=== PATIENT | female | born 1930 | race Caucasian/White ===

== ENCOUNTER 2018-12-02 08:42 | Inpatient (IN) | payer MEDICARE, MEDICAID ==
[~2018-12-02] VITALS: Ht 165.1 cm; Wt 60.0 kg
[~2018-12-02 08:42] MED LIST: ASP81TEC PO; CALC-656 PO; CARV6.252 PO; CLOP75TA PO; HYDR-34 PO; LANS15CA PO; LISI20TA PO; MELA1TAB PO; MULT-608 PO; NITR100C3 PO; NTR.4SL SL; ROSU10TA12 PO
--- NOTE | 2018-12-02 09:15 | ED Cardiac General ---
History of Present Illness General Chief Complaint: Chest Pain Stated Complaint: CHEST PAIN Source: patient, family Exam Limitations: no limitations History of Present Illness Date Seen by Provider: Dec 02, 2018 Time Seen by Provider: 09:11 Initial Comments 87-year-old female presents with chest pain that occurred this morning. While walking to the dining room patient experienced 5 minutes of pressure type anterior nonradiating chest pain. She had no associated diaphoresis shortness of breath or nausea. Patient has cardiac disease. She has had stents in [place] with Dr. Landry. Patient has had strokes in the past. Patient denies fever, chills, productive cough, nausea vomiting or diarrhea, change in medication, or headache or stiff neck. The patient's chest pain has not recurred since it's 5 minute presentation earlier this morning. Allergies and Home Medications Allergies Coded Allergies: Erythromycin Base (Verified Allergy, Unknown, 07/22/10) Sulfa (Sulfonamides) (Verified Allergy, Unknown, 07/22/10) Home Medications Aspirin 81 Mg Tabec, 81 MG PO DAILY, (Reported) Calcium Carbonate/Vitamin D3 1 Each Tablet, 1 EACH PO DAILY, (Reported) Carvedilol 6.25 Mg Tablet, 1 EACH PO BID, (Reported) Clopidogrel Bisulfate 75 Mg Tablet, 1 EACH PO DAILY, (Reported) Hydrocodone Bit/Acetaminophen 1 Ea Tablet, 1-2 EA PO Q 4 - 6 HR PRN, (Reported) Lansoprazole 15 Mg Capsule.dr, 15 MG PO DAILY, (Reported) Lisinopril 20 Mg Tablet, 1 EACH PO DAILY, (Reported) Melatonin/Pyridoxine 1 Each Tablet, 1 EACH PO HS, (Reported) Multivitamins 1 Tab Tablet, 1 TAB PO DAILY, (Reported) Nitrofurantoin Macrocrystal 100 Mg Capsule, 1 CAP PO three times/weekly, (Reported) Clcr <60 mL/minute: Contraindicated Nitroglycerin 0.4 Mg Subl, 0.4 MG SL NEEDED, (Reported) Rosuvastatin Calcium 10 Mg Tablet, 1 EACH PO every other day, (Reported) Patient Home Medication List Home Medication List Reviewed: Yes Review of Systems Review of Systems Constitutional: no symptoms reported; No chills, No diaphoresis, No dizziness, No fever EENTM: No Symptoms Reported; No Blurred Vision Respiratory: No Symptoms Reported; Denies Cough, Denies Shortness of Air Cardiovascular: See HPI, Chest Pain; Denies Lightheadedness, Denies Palpitations Gastrointestinal: No Symptoms Reported; Denies Abdominal Pain, Denies Diarrhea, Denies Nausea, Denies Vomiting Genitourinary: No Symptoms Reported Musculoskeletal: no symptoms reported Skin: no symptoms reported Psychiatric/Neurological: No Symptoms Reported Endocrine: No Symptoms Reported Hematologic/Lymphatic: No Symptoms Reported Past Afadfbe-Jcyhag-Yyjueq Hx Past Med/Social Hx: Reviewed Nursing Past Med/Soc Hx Patient Social History Physical Abuse: No Sexual Abuse: No Mistreated: No Fear: No Physical Exam Vital Signs Vital Signs - First Documented Capillary Refill : Height, Weight, BMI Height: '" Weight: lbs. oz. kg; BMI Method: General Appearance: No Apparent Distress, WD/WN HEENT: Normal ENT Inspection Neck: Normal Inspection Respiratory: Lungs Clear Cardiovascular: Regular Rate, Rhythm, No Murmur Gastrointestinal: Normal Bowel Sounds Extremity: Normal Capillary Refill, Normal Inspection, Normal Range of Motion Neurologic/Psychiatric: No Motor/Sensory Deficits Skin: Normal Color, Warm/Dry; No Rash Progress/Results/Core Measures Results/Orders Lab Results Laboratory Tests Test 12/02/18 08:55 Range/Units White Blood Count 7.3 4.3-11.0 10^3/uL Red Blood Count 4.44 4.35-5.85 10^6/uL Hemoglobin 13.6 11.5-16.0 G/DL Hematocrit 42 35-52 % Mean Corpuscular Volume 94 80-99 FL Mean Corpuscular Hemoglobin 31 25-34 PG Mean Corpuscular Hemoglobin Concent 33 32-36 G/DL Red Cell Distribution Width 12.9 10.0-14.5 % Platelet Count 267 130-400 10^3/uL Mean Platelet Volume 10.7 H 7.4-10.4 FL Neutrophils (%) (Auto) 64 42-75 % Lymphocytes (%) (Auto) 26 12-44 % Monocytes (%) (Auto) 8 0-12 % Eosinophils (%) (Auto) 1 0-10 % Basophils (%) (Auto) 1 0-10 % Neutrophils # (Auto) 4.7 1.8-7.8 X 10^3 Lymphocytes # (Auto) 1.9 1.0-4.0 X 10^3 Monocytes # (Auto) 0.6 0.0-1.0 X 10^3 Eosinophils # (Auto) 0.1 0.0-0.3 10^3/uL Basophils # (Auto) 0.1 0.0-0.1 10^3/uL Sodium Level 142 135-145 MMOL/L Potassium Level 3.6 3.6-5.0 MMOL/L Chloride Level 101 98-107 MMOL/L Carbon Dioxide Level 27 21-32 MMOL/L Anion Gap 14 5-14 MMOL/L Blood Urea Nitrogen 11 7-18 MG/DL Creatinine 0.86 0.60-1.30 MG/DL Estimat Glomerular Filtration Rate > 60 BUN/Creatinine Ratio 13 Glucose Level 123 H 70-105 MG/DL Calcium Level 9.5 8.5-10.1 MG/DL Corrected Calcium 9.3 8.5-10.1 MG/DL Total Bilirubin 0.5 0.1-1.0 MG/DL Aspartate Amino Transf (AST/SGOT) 17 5-34 U/L Alanine Aminotransferase (ALT/SGPT) 12 0-55 U/L Alkaline Phosphatase 83 40-136 U/L Troponin I < 0.30 <0.30 NG/ML Total Protein 7.0 6.4-8.2 GM/DL Albumin 4.3 3.2-4.5 GM/DL Lipase 39 8-78 U/L My Orders Orders - SHERINE DONIS MD Troponin I (12/02/18 09:09) Cbc With Automated Diff (12/02/18 09:09) Comprehensive Metabolic Panel (12/02/18 09:09) Lipase (12/02/18 09:09) Ua Culture If Indicated (12/02/18 09:09) Chest 1 View Ap/Pa Only (12/02/18 09:09) Fibrin Degradation Products (12/02/18 09:09) Ekg Tracing (12/02/18 08:55) Continuous Ekg Monitoring (12/02/18 09:18) Ed Iv/Invasive Line Start (12/02/18 09:18) Aspirin Chewable Tablet (Baby Aspirin Ch (12/02/18 09:20) Medications Given in ED Current Medications Medications Dose Ordered Sig/Dianelys Route Start Time Stop Time Status Last Admin Dose Admin Aspirin 324 mg ONCE ONCE PO 12/02/18 09:20 12/02/18 09:21 DC 12/02/18 09:35 324 MG Vital Signs/I&O 12/02/18 12/02/18 08:44 08:44 Temp 97.7 Pulse 67 Resp 15 B/P (MAP) 176/78 (110) Pulse Ox 97 O2 Delivery Room Air Room Air Progress Progress Note : Time: 09:53 Progress Note The patient remained pain-free in the emergency department. Various historians revealed that the patient may be taking aspirin and Plavix. The family's desires that the patient be observed at [facility]. Drs. Sosa and BERTHA were kind enough to accept patient in transfer. The patient received 325 mg of aspirin and 25 mg of metoprolol extended release here in the emergency department. Arrangements are being made to transfer the patient to [facility] and I'll write holding orders Departure Communication (Admissions) Time/Spoke to Admitting Phy: 10:01 Dr. Cottrell. Time/Spoke to Consulting Phy: 10:02 Dr. Sosa. Impression Primary Impression: Chest pain Qualified Codes: R07.9 - Chest pain, unspecified Disposition: 09 ADMITTED INPATIENT Condition: Unchanged Admissions Decision to Admit Reason: Admit from ER (General) Decision to Admit/Date: Dec 02, 2018 Time/Decision to Admit Time: 10:02 Departure-Patient Inst. Referrals: APRIL CASTANEDA MD (PCP/Family) Primary Care Physician SHERINE DONIS MD Dec 02, 2018 09:15
[2018-12-02 09:19] LABS: HEMATOCRIT 42 % (35-52); HEMOGLOBIN 13.6 G/DL (11.5-16.0); MEAN CORPUSCULAR HEMOGLOBIN 31 PG (25-34); MEAN CORPUSCULAR VOLUME 94 FL (80-99); WHITE BLOOD COUNT 7.3 10^3/uL (4.3-11.0)
[2018-12-02 09:20] LABS: BASOPHILS # (AUTO) 0.1 10^3/uL (0.0-0.1); BASOPHILS % (AUTO) 1 % (0-10); EOSINOPHILS # (AUTO) 0.1 10^3/uL (0.0-0.3); EOSINOPHILS % (AUTO) 1 % (0-10); LYMPHOCYTES # (AUTO) 1.9 X 10^3 (1.0-4.0); LYMPHOCYTES % (AUTO) 26 % (12-44); MEAN CORPUSCULAR HGB CONC 33 G/DL (32-36); MEAN PLATELET VOLUME 10.7 FL (7.4-10.4); MONOCYTES # (AUTO) 0.6 X 10^3 (0.0-1.0); MONOCYTES % (AUTO) 8 % (0-12); NEUTROPHILS # (AUTO) 4.7 X 10^3 (1.8-7.8); NEUTROPHILS % (AUTO) 64 % (42-75); PLATELET COUNT 267 10^3/uL (130-400); RED CELL DISTRIBUTION WIDTH 12.9 % (10.0-14.5)
[2018-12-02] MEDS ORDERED: ASPIRIN 81 MG CHEW (CHILDREN'S ASA) PO ONE (09:20)
--- NOTE | 2018-12-02 09:35 | NUR ---
Spoke on family cell phone with a DPOA Yogi that advises ok to admit to [facility] and pt is a full resuscitation unless signs of permanent brain damage present or no recovery. At this time maintain Full Code.
--- NOTE | 2018-12-02 09:37 | Diagnostic Imaging Report ---
Indication: Chest pain. Comparison: None. Discussion: Single portable upright view of the chest was obtained. Heart is upper limits of normal in size. No focal consolidation, pleural fluid, or pneumothorax. No osseous abnormality. Impression: 1. No acute cardiopulmonary process. Dictated by: Dictated on workstation # [id number]
[2018-12-02 09:39] LABS: BUN/CREATININE RATIO 13; CALCIUM 9.5 MG/DL (8.5-10.1); CARBON DIOXIDE 27 MMOL/L (21-32); CHLORIDE 101 MMOL/L (98-107); CREATININE SERUM 0.86 MG/DL (0.60-1.30); GFR ESTIMATED > 60; GLUCOSE 123 MG/DL (70-105); POTASSIUM 3.6 MMOL/L (3.6-5.0); SODIUM 142 MMOL/L (135-145)
[2018-12-02 09:40] LABS: ALANINE AMINOTRANSFERASE 12 U/L (0-55); ALBUMIN 4.3 GM/DL (3.2-4.5); ALKALINE PHOSPHATASE 83 U/L (40-136); BILIRUBIN,TOTAL 0.5 MG/DL (0.1-1.0); LIPASE 39 U/L (8-78)
--- NOTE | 2018-12-02 09:45 | NUR ---
Call to [facility] [place] to leave a message on voice recorder of need for patient medication list.
--- NOTE | 2018-12-02 10:00 | NUR ---
Fax number provided to the [employer] Consultant Crystal of [facility] as present visiting with family. Request they fax a medication list to ER.
--- OUTSIDE RECORDS SUMMARY | 2018-12-02 10:23 | XMS REPORT | Continuity of Care Document ---
Demographics Preferred Language Unknown Marital Status Unknown Restorationism Affiliation Unknown Race Unknown Ethnic Group Unknown Author Organization Unknown Address Unknown Allergies There is no data. Medications There is no data. Problems There is no data. Procedures There is no data. Results Test Result Range A1C - 07/27/18 10:04 HEMOGLOBIN A1c 5.3 % of total Hgb <5.7 Encounters ACCT No. Visit Date/Time Discharge Status Pt. Type Provider Facility Loc./Unit Complaint [id number] 07/27/2018 16:30:00 Document Registration
--- OUTSIDE RECORDS SUMMARY | 2018-12-02 10:32 | XMS REPORT | Continuity of Care Document ---
Demographics Preferred Language Unknown Marital Status Unknown Roman Catholic Affiliation Unknown Race Unknown Ethnic Group Unknown Author Organization Unknown Address Unknown Allergies There is no data. Medications There is no data. Problems There is no data. Procedures There is no data. Results Test Result Range A1C - 07/27/18 10:04 HEMOGLOBIN A1c 5.3 % of total Hgb <5.7 Encounters ACCT No. Visit Date/Time Discharge Status Pt. Type Provider Facility Loc./Unit Complaint [id number] 07/27/2018 16:30:00 Document Registration
[2018-12-02 11:16] LABS: CLARITY,URINE CLEAR; COLOR,URINE YELLOW
[2018-12-02 11:17] LABS: BACTERIA,URINE MODERATE /HPF; BILIRUBIN,URINE NEGATIVE (NEGATIVE); GLUCOSE, URINE (UA) NEGATIVE (NEGATIVE); KETONES,URINE NEGATIVE (NEGATIVE); LEUKOCYTE ESTERASE ,URINE NEGATIVE (NEGATIVE); NITRITE,URINE POSITIVE (NEGATIVE); PROTEIN,URINE NEGATIVE (NEGATIVE); RBC,URINE RARE /HPF; SQUAMOUS EPITHELIAL CELL,UR 0-2 /HPF; UROBILINOGEN,URINE 0.2 MG/DL (NORMAL); WBC,URINE 0-2 /HPF
[2018-12-02 11:50] VITALS: BP 194/99
--- NOTE | 2018-12-02 11:50 | NUR ---
CED JOHN admitted to room 407-1, with an admitting diagnosis of chest pain, on 12/02/18 from [facility] via EMS, accompanied by EMS.CED JOHN introduced to surroundings, call light, bed controls, phone, TV, temperature control, lights, meal times, smoking policy, visitor policy, side rail policy, bathrooms and showers. Patient Rights given to patient in the handbook. CED JOHN verbalizes understanding that [facility] is not responsible for the loss or damage to any personal effects or valuables that are kept in the patients posession during their hospitalization. CED JOHN verbalizes understanding of Interdisciplinary Patient Education. Patient and/or family were informed about the Rapid Response Team and its purpose.
[2018-12-02] MEDS ORDERED: NS IV 1000 ML 1,000 ML IV SCH (12:45)
--- NOTE | 2018-12-02 13:10 | History & Physical-Hospitalist ---
History of Present Illness HPI/Chief Complaint Chief complaint: Chest pressure History of present illness: This is an 87-year-old white female clinic patient of Dr. Edmonds who resides in assisted living facility who was brought to the ER in [place] with complaints of chest pain. She reports that it is hard to describe but she did experience it and has not had a recurrent episode of it since admission. She has significant dementia of which she willingly admits so it is very difficult to obtain any details from the patient. She is seen Dr. Landry before cardiology in [place] and does have a history of CAD but uncertain of any intervention and so forth but it does appear she takes Plavix and aspirin as an outpatient. She does have a history of TIAs likely causing the vascular dementia and requiring assisted living facility. At this current time patient was very hungry is eating chicken noodles for lunch and seems to be very reassured. Her family is at the bedside. Source: patient, family Exam Limitations: no limitations Date Seen 12/02/18 Time Seen by a Provider: 13:00 Attending Physician Chantal Cottrell Maxwell MD Referring Physician Date of Admission Dec 02, 2018 at 10:26 Home Medications & Allergies Home Medications Reviewed patient Home Medication Reconciliation performed by pharmacy medication reconciliations body technician and/or nursing. Patients Allergies have been reviewed. Allergies Allergies Coded Allergies Sulfa (Sulfonamide Antibiotics) (Verified Allergy, Unknown, 12/02/18) erythromycin base (Verified Allergy, Unknown, 12/02/18) adhesive tape (Verified Adverse Reaction, Unknown, 12/02/18) gatifloxacin (Verified Adverse Reaction, Unknown, 12/02/18) salsalate (Verified Adverse Reaction, Unknown, 12/02/18) tramadol (Verified Adverse Reaction, Unknown, 12/02/18) Past Cvseiam-Kdczdb-Iayptm Hx Past Med/Social Hx: Reviewed Nursing Past Med/Soc Hx, Reviewed and Corrections made Patient Social History Marrital Status: single Employed/Student: retired Alcohol Use: Denies Use Recreational Drug Use: No Smoking Status: Never a Smoker 2nd Hand Smoke Exposure: No Recent Foreign Travel: No Contact w/other who traveled: No Recent Hopitalizations: No Recent Infectious Disease Expo: No Seasonal Allergies Seasonal Allergies: No Past Medical History Surgeries: Appendectomy, Bladder Surgery, Cardiac, Coronary Stent, Gallbladder, Hysterectomy Cardiac: Coronary Artery Disease, High Cholesterol, Hypertension Neurological: Dementia, TIA Hysterectomy Gastrointestinal: Gastroesophageal Reflux Musculoskeletal: Arthritis, Fibromyalgia History of Blood Disorders: No Review of Systems Constitutional: see HPI, malaise, weakness EENTM: no symptoms reported Respiratory: no symptoms reported Cardiovascular: chest pain Gastrointestinal: no symptoms reported Musculoskeletal: no symptoms reported Skin: no symptoms reported Psychiatric/Neurological: Depressed All Other Systems Reviewed Negative Unless Noted: Yes Physical Exam Physical Exam Vital Signs Vital Signs - First Documented Capillary Refill : Less Than 3 Seconds Height, Weight, BMI Height: 5'5.00" Weight: 132lbs. 5.0oz. [id number]; BMI Method:Stated General Appearance: No Apparent Distress, WD/WN, Chronically ill, Thin Eyes: Right Eye Normal Inspection, Right Eye PERRL HEENT: PERRL/EOMI, Normal ENT Inspection, Pharynx Normal, Moist Mucous Membranes Neck: Full Range of Motion, Normal Inspection, Non Tender Respiratory: Chest Non Tender, Lungs Clear, Normal Breath Sounds, No Accessory Muscle Use, No Respiratory Distress Cardiovascular: Regular Rate, Rhythm, No Edema, No Gallop, No JVD, No Murmur, Normal Peripheral Pulses Gastrointestinal: Normal Bowel Sounds, No Organomegaly, No Pulsatile Mass, Non Tender, Soft Back: Normal Inspection, No CVA Tenderness, No Vertebral Tenderness Extremity: Normal Capillary Refill, Normal Inspection, Normal Range of Motion, Non Tender, No Calf Tenderness, No Pedal Edema Neurologic/Psychiatric: Alert, Oriented x3 (very poor recall), No Motor/Sensory Deficits, Normal 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 Assessment/Plan Admission Diagnosis Assessment: Chest pain of uncertain etiology History of CAD previously treated by Dr. Landry cardiology in [place] unknown if any interventions were required in the past TIAs in the past Vascular dementia requiring assisted-living facility admission Hypertension Hormone replacement therapy Hyperlipidemia GERD Plan: Home meds after reconciled Aspirin and Plavix Statin Echo Carotid ultrasound Monitor closely Appreciate cardiology consultation Admission Status: Observation Diagnosis/Problems Diagnosis/Problems (1) Chest pain Status: Acute Qualifiers: Chest pain type: unspecified Qualified Codes: R07.9 - Chest pain, unspecified (2) Vascular dementia Status: Chronic Qualifiers: Dementia behavioral disturbance: without behavioral disturbance Qualified Codes: F01.50 - Vascular dementia without behavioral disturbance (3) Memory loss Status: Chronic (4) Hypertension Status: Chronic Qualifiers: Hypertension type: essential hypertension Qualified Codes: I10 - Essential (primary) hypertension (5) Hyperlipemia Status: Chronic Qualifiers: Hyperlipidemia type: mixed hyperlipidemia Qualified Codes: E78.2 - Mixed hyperlipidemia (6) Estrogen deficiency Status: Chronic (7) Hx-TIA (transient ischemic attack) Status: Chronic (8) GERD without esophagitis Status: Chronic CHANTAL COTTRELL DO Dec 02, 2018 13:10
[2018-12-02] MEDS ORDERED: meTOproloL SUCCINATE 50 MG (TOPROL XL) TAB PO NR (14:30)
--- NOTE | 2018-12-02 14:31 | Consultation-Cardiology ---
HPI-Cardiology Cardiology Consultation: Date of Consultation 12/02/18 Time Seen by a Provider: 13:20 Date of Admission Attending Physician Chantal Cottrell DO Admitting Physician Yosvany Edmonds MD Consulting Physician DICK JOHNSON MD, MA, FACP, FACC, [facility], CCDS Physician requesting consult: Dr Cottrell HPI: Chief Complaint: CC: Chest discomfort HPI 87 woman who resides at an assisting-living facility in [facility] [place] and who was sent to ER from the facility with chest discomfort. History is somewhat difficult to elicit because she herself does not recall any chest discomfort. She says she generally felt unwell and had some headache this am and did not feel like eating breakfast. Per family report and report of his care provider (to the ER physician at [facility]) she had pressure in the chest that lasted approx 5 min. As stated, pt does not recall that, but is stated to have mild dementia and poor memory. Family also reports a h/o TIAs and cor stents (last 10-[address] Landry in [place], [place]). She has not followed with a fuel quality tech of longer than 4 years, according to her. Review of Systems-Cardiology Review of Systems Constitutional: As described under HPI Eyes: No vision change Ears/Nose/Throat: No ear discharge, No nasal drainage, No recent hearing loss Respiratory: As described under HPI Cardiovascular: As described under HPI Gastrointestinal: No diarrhea, No nausea, No vomiting Genitourinary: No dysuria, No hematuria, No urine frequency changes Musculoskeletal: No back pain, No joint pain Skin: No rash, No ulcerations Psychiatric/Neurological: No seizure, No focal weakness, No syncope Hematologic: No bleeding abnormalities TSK-Kjzbaf-Hmoxkv Hx Patient Social History Alcohol Use: Denies Use Recreational Drug Use: No Smoking Status: Never a Smoker 2nd Hand Smoke Exposure: No Recent Foreign Travel: No Recent Infectious Disease Expo: No Hospitalization with Isolation: Denies Past Medical History PMH As described under Assessment. Family Medical History Family Medical History: A son had an [place] at age less than 60 Allergies and Home Medications Allergies Coded Allergies: Sulfa (Sulfonamide Antibiotics) (Verified Allergy, Unknown, 07/22/10) erythromycin base (Verified Allergy, Unknown, 07/22/10) adhesive tape (Unverified Adverse Reaction, Unknown, 12/02/18) gatifloxacin (Unverified Adverse Reaction, Unknown, 12/02/18) salsalate (Unverified Adverse Reaction, Unknown, 12/02/18) tramadol (Unverified Adverse Reaction, Unknown, 12/02/18) Home Medications Aspirin 81 Mg Tabec, 81 MG PO DAILY, (Reported) Calcium Carbonate/Vitamin D3 1 Each Tablet, 1 EACH PO DAILY, (Reported) Carvedilol 6.25 Mg Tablet, 1 EACH PO BID, (Reported) Clopidogrel Bisulfate 75 Mg Tablet, 1 EACH PO DAILY, (Reported) Hydrocodone Bit/Acetaminophen 1 Ea Tablet, 1-2 EA PO Q 4 - 6 HR PRN, (Reported) Lansoprazole 15 Mg Capsule.dr, 15 MG PO DAILY, (Reported) Lisinopril 20 Mg Tablet, 1 EACH PO DAILY, (Reported) Melatonin/Pyridoxine 1 Each Tablet, 1 EACH PO HS, (Reported) Multivitamins 1 Tab Tablet, 1 TAB PO DAILY, (Reported) Nitrofurantoin Macrocrystal 100 Mg Capsule, 1 CAP PO three times/weekly, (Reported) Clcr <60 mL/minute: Contraindicated Nitroglycerin 0.4 Mg Subl, 0.4 MG SL NEEDED, (Reported) Rosuvastatin Calcium 10 Mg Tablet, 1 EACH PO every other day, (Reported) Patient Home Medication List Home Medication List Reviewed: Yes Physical Exam-Cardiology Physical Exam Vital Signs/I&O 12/02/18 12/02/18 12/02/18 12/02/18 08:44 08:44 11:00 11:50 Temp 97.7 97.7 98.0 Pulse 67 55 67 Resp 15 15 20 B/P (MAP) 176/78 (110) 167/72 (103) 194/99 (130) Pulse Ox 97 96 98 O2 Delivery Room Air Room Air Room Air Room Air 12/02/18 12/02/18 11:50 13:29 Temp 98.0 Pulse 67 69 Resp 20 B/P (MAP) 194/99 Pulse Ox 98 O2 Delivery Room Air Capillary Refill : Less Than 3 Seconds Constitutional: AAO x 3, well-developed, well-nourished HEENT: PERRL, EOMI; No xanthelasmas are seen Neck: carotid pulses are 2 + bilaterally, with good upstrokes Respiratory: No accessory muscle use; lungs clear to percussion, lungs clear to auscultation Cardiovascular: regular rate-rhythm, S1 and S2, systolic murmur (soft KRISTY at card base) Gastrointestinal: No tender; soft; No guarding, No rebound; audible bowel sounds Extremities: No clubbing, No cyanosis, No significant edema Neurologic/Psychiatric: oriented x 3, other (moves all limbs equally) Skin: No rash on exposed areas, No ulcerations on exposed areas Data Review Labs Laboratory Tests 12/02/18 08:55: White Blood Count 7.3, Red Blood Count 4.44, Hemoglobin 13.6, Hematocrit 42, Mean Corpuscular Volume 94, Mean Corpuscular Hemoglobin 31, Mean Corpuscular Hemoglobin Concent 33, Red Cell Distribution Width 12.9, Platelet Count 267, Mean Platelet Volume 10.7H, Neutrophils (%) (Auto) 64, Lymphocytes (%) (Auto) 26, Monocytes (%) (Auto) 8, Eosinophils (%) (Auto) 1, Basophils (%) (Auto) 1, Neutrophils # (Auto) 4.7, Lymphocytes # (Auto) 1.9, Monocytes # (Auto) 0.6, Eosinophils # (Auto) 0.1, Basophils # (Auto) 0.1, D-Dimer 0.61H, Sodium Level 142, Potassium Level 3.6, Chloride Level 101, Carbon Dioxide Level 27, Anion Gap 14, Blood Urea Nitrogen 11, Creatinine 0.86, Estimat Glomerular Filtration Rate > 60, BUN/Creatinine Ratio 13, Glucose Level 123H, Calcium Level 9.5, Corrected Calcium 9.3, Total Bilirubin 0.5, Aspartate Amino Transf (AST/SGOT) 17, Alanine Aminotransferase (ALT/SGPT) 12, Alkaline Phosphatase 83, Troponin I < 0.30, T otal Protein 7.0, Albumin 4.3, Lipase 39 12/02/18 11:00: Urine Color YELLOW, Urine Clarity CLEAR, Urine pH 8.0, Urine Specific [place] 1.010L, Urine Protein NEGATIVE, Urine Glucose (UA) NEGATIVE, Urine Ketones NEGATIVE, Urine Nitrite POSITIVEH, Urine Bilirubin NEGATIVE, Urine Urobilinogen 0.2, Urine Leukocyte Esterase NEGATIVE, Urine RBC (Auto) NEGATIVE, Urine RBC RARE, Urine WBC 0-2, Urine Squamous Epithelial Cells 0-2, Urine Crystals NONE, Urine Bacteria MODERATEH, Urine Casts NONE, Urine Mucus NONE, Urine Culture Indicated YES Laboratory Tests 12/02/18 08:55 A/P-Cardiology Assessment/Admission Diagnosis Chest discomfort of undetermined etiology CAD. H/o cor stents at [place], [place] more than 10 years ago. No details known to pt or family H/o TIAs (as reported by her family) Hypertension Mild dementia Discussion and Recomendations * Serial card enzymes and troponin measurements. If evidence of ACS, consider cath/PCI. Otherwise, conservative management * Add aspirin and beta-carola * Echo * Check carotids * I spoke with her and her fam in detail and explained our treatment plan and answered their questions DICK JOHNSON MD FACP FACC CCDS Dec 02, 2018 14:31
[2018-12-02] MEDS ORDERED: ESTR0.5T3 PO (15:02)
[2018-12-02] MEDS ORDERED: DONE10TA12 PO (15:04)
[2018-12-02] MEDS ORDERED: MEMA10TA2 PO (15:06)
[2018-12-02] MEDS ORDERED: LISI-556 PO (15:12)
[2018-12-02 15:34] VITALS: BP 188/82
[2018-12-02 17:18] VITALS: BP 186/78
[2018-12-02 19:36] VITALS: BP 178/78
[2018-12-02] MEDS ORDERED: DONEPEZIL 10 MG (ARICEPT) TAB PO SCH (21:00)
[2018-12-02] MEDS ORDERED: ROSUVASTATIN 10 MG (CRESTOR) TABLET PO SCH (21:00)
[2018-12-02] MEDS: MEMANTINE 10 MG (NAMENDA) TABLET PO SCH (21:08)
[2018-12-03] VITALS: BP 175/73
[2018-12-03 04:04] VITALS: BP 151/76
[2018-12-03 05:18] LABS: BASOPHILS # (AUTO) 0.1 10^3/uL (0.0-0.1); BASOPHILS % (AUTO) 1 % (0-10); EOSINOPHILS # (AUTO) 0.1 10^3/uL (0.0-0.3); EOSINOPHILS % (AUTO) 2 % (0-10); HEMATOCRIT 39 % (35-52); HEMOGLOBIN 12.3 G/DL (11.5-16.0); LYMPHOCYTES # (AUTO) 1.6 X 10^3 (1.0-4.0); LYMPHOCYTES % (AUTO) 27 % (12-44); MEAN CORPUSCULAR HEMOGLOBIN 30 PG (25-34); MEAN CORPUSCULAR HGB CONC 32 G/DL (32-36); MEAN CORPUSCULAR VOLUME 93 FL (80-99); MONOCYTES # (AUTO) 0.7 X 10^3 (0.0-1.0); MONOCYTES % (AUTO) 12 % (0-12); NEUTROPHILS # (AUTO) 3.5 X 10^3 (1.8-7.8); NEUTROPHILS % (AUTO) 57 % (42-75); PLATELET COUNT 239 10^3/uL (130-400); WHITE BLOOD COUNT 6.1 10^3/uL (4.3-11.0)
[2018-12-03 05:33] LABS: ALANINE AMINOTRANSFERASE 13 U/L (0-55); ALBUMIN 3.7 GM/DL (3.2-4.5); ALKALINE PHOSPHATASE 64 U/L (40-136); BILIRUBIN,TOTAL 0.5 MG/DL (0.1-1.0); BUN/CREATININE RATIO 14; CARBON DIOXIDE 24 MMOL/L (21-32); CHLORIDE 108 MMOL/L (98-107); CREATININE SERUM 0.78 MG/DL (0.60-1.30); GFR ESTIMATED > 60; GLUCOSE 93 MG/DL (70-105); POTASSIUM 3.7 MMOL/L (3.6-5.0); SODIUM 142 MMOL/L (135-145); TOTAL PROTEIN 5.6 GM/DL (6.4-8.2)
[2018-12-03] MEDS ORDERED: MULTIVIT W/MINERALS TAB (THERAGRAN M) PO SCH (07:00)
[2018-12-03 08:13] VITALS: BP 156/70
[2018-12-03] MEDS ORDERED: meTOproloL SUCCINATE 50 MG (TOPROL XL) TAB PO SCH (09:00)
[2018-12-03] MEDS ORDERED: lisINopril 5 MG (PRINIVIL) TABLET PO SCH (09:00)
[2018-12-03] MEDS ORDERED: ASPIRIN 325 MG (5 GR) TABLET PO SCH (09:00)
[2018-12-03] MEDS ORDERED: ASPIRIN E.C. 81 MG (ECOTRIN) TAB PO SCH (09:00)
[2018-12-03] MEDS: MEMANTINE 10 MG (NAMENDA) TABLET PO SCH (10:02)
[2018-12-03 12:07] VITALS: BP 192/78
--- NOTE | 2018-12-03 13:26 | Discharge Summary-Hospitalist ---
Diagnosis/Chief Complaint Date of Admission Dec 02, 2018 at 10:26 Date of Discharge Discharge Date: Dec 03, 2018 Admission Diagnosis Assessment: Chest pain of uncertain etiology History of CAD previously treated by Dr. Landry cardiology in [place] unknown if any interventions were required in the past TIAs in the past Vascular dementia requiring assisted-living facility admission Hypertension Hormone replacement therapy Hyperlipidemia GERD Plan: Home meds after reconciled Aspirin and Plavix Statin Echo Carotid ultrasound Monitor closely Appreciate cardiology consultation Discharge Diagnosis (1) Chest pain Status: Acute (2) Vascular dementia Status: Chronic (3) Memory loss Status: Chronic (4) Hypertension Status: Chronic (5) Hyperlipemia Status: Chronic (6) Estrogen deficiency Status: Chronic (7) Hx-TIA (transient ischemic attack) Status: Chronic (8) GERD without esophagitis Status: Chronic Discharge Summary Discharge Physical Exam Allergies: Coded Allergies: Sulfa (Sulfonamide Antibiotics) (Verified Allergy, Unknown, 12/02/18) erythromycin base (Verified Allergy, Unknown, 12/02/18) adhesive tape (Verified Adverse Reaction, Unknown, 12/02/18) gatifloxacin (Verified Adverse Reaction, Unknown, 12/02/18) salsalate (Verified Adverse Reaction, Unknown, 12/02/18) tramadol (Verified Adverse Reaction, Unknown, 12/02/18) Vitals & I&Os Vital Signs Date Time Temp Pulse Resp B/P (MAP) Pulse Ox O2 Delivery O2 Flow Rate FiO2 12/03/18 15:09 51 19 192/78 99 Room Air 0.00 12/03/18 12:07 97.2 General Appearance: No Apparent Distress, WD/WN, Chronically ill Respiratory: Chest Non Tender, Lungs Clear, Normal Breath Sounds, No Accessory Muscle Use, No Respiratory Distress Cardiovascular: Regular Rate, Rhythm, No Edema, No Gallop, No JVD, No Murmur, Normal Peripheral Pulses Neurologic/Psychiatric: Alert, Oriented x3, No Motor/Sensory Deficits, Normal Mood/Affect Hospital Course Was the Problem List Reviewed?: Yes Hospital course: Patient had a short hospital course in observation after complaining of chest pain went to [facility] from assisted living was found to have the need for ruling out acute coronary syndrome so she was placed at [facility] cardiology was consulted and serial troponins were obtained. Patient has significant dementia requiring assisted living placement chronically and does not really recall the episode of chest pain she had. Home medications were restarted cardiology evaluated her to have no evidence of acute coronary syndrome so she was discharged at her request with close follow-up with her primary care provider and her family wants to talk to him about more medications for her dementia. Labs (last 24 hrs) Laboratory Tests 12/02/18 23:41: Troponin I < 0.028 12/03/18 04:40: Troponin I < 0.028, White Blood Count 6.1, Red Blood Count 4.16L, Hemoglobin 12.3, Hematocrit 39, Mean Corpuscular Volume 93, Mean Corpuscular Hemoglobin 30, Mean Corpuscular Hemoglobin Concent 32, Red Cell Distribution Width 13.0, Platelet Count 239, Mean Platelet Volume 11.0H, Neutrophils (%) (Auto) 57, Lymphocytes (%) (Auto) 27, Monocytes (%) (Auto) 12, Eosinophils (%) (Auto) 2, Basophils (%) (Auto) 1, Neutrophils # (Auto) 3.5, Lymphocytes # (Auto) 1.6, Monocytes # (Auto) 0.7, Eosinophils # (Auto) 0.1, Basophils # (Auto) 0.1, Sodium Level 142, Potassium Level 3.7, Chloride Level 108H, Carbon Dioxide Level 24, Anion Gap 10, Blood Urea Nitrogen 11, Creatinine 0.78, Estimat Glomerular Filtration Rate > 60, BUN/Creatinine Ratio 14, Glucose Level 93, Calcium Level 9.0, Corrected Calcium 9.2, Total Bilirubin 0.5, Aspartate Amino Transf (AST/SGOT) 18, Alanine Aminotransferase (ALT/SGPT) 13, Alkaline Phosphatase 64, Total Protein 5.6L, Albumin 3.7 Patient resulted labs reviewed. Discussion & Recommendations Discharge Planning: <30 minutes discharge planning Discharge Home Medications: Active Scripts Active Lisinopril 5 Mg Tablet 5 Mg PO DAILY 30 Days Namenda (Memantine HCl) 10 Mg Tablet 10 Mg PO BID 30 Days Aricept (Donepezil HCl) 10 Mg Tablet 10 Mg PO HS 30 Days Estrace Tablet (Estradiol) 0.5 Mg Tablet 0.5 Mg PO DAILY 30 Days Reported Lortab 7.5 Mg Tablet (Acetaminophen/Hydrocodone Bitart) 1 Ea Tablet 1-2 Ea PO Q 4 - 6 HR PRN Prevacid (Lansoprazole) 15 Mg Capsule.dr 15 Mg PO DAILY Melatonin 5 Mg Tablet (Melatonin/Pyridoxine) 1 Each Tablet 1 Each PO HS Calcium 500 + D Tablet (Calcium Carbonate/Vitamin D3) 1 Each Tablet 1 Each PO DAILY Multiple Vitamin (Multivitamins) 1 Tab Tablet 1 Tab PO DAILY Aspirin Ec 81 Mg (Aspirin) 81 Mg Tabec 81 Mg PO DAILY Nitrostat (Nitroglycerin) 0.4 Mg Subl 0.4 Mg SL NEEDED Macrobid 100 Mg (Nitrofurantoin Macrocrystals) 100 Mg Capsule 1 Cap PO THREE TIMES/WEEKLY Clcr <60 mL/minute: Contraindicated Crestor (Rosuvastatin Calcium) 10 Mg Tablet 1 Each PO EVERY OTHER DAY Carvedilol 6.25 Mg Tablet 1 Each PO BID Plavix 75 Mg (Clopidogrel Bisulfate) 75 Mg Tablet 1 Each PO DAILY Instructions to patient/family Please see electronic discharge instructions given to patient. Clinical Quality Measures DVT/VTE Risk/Contraindication: Risk Factor Score Per Nursin RFS Level Per Nursing on Admit: 2=Moderate Problem Qualifiers (1) Chest pain: Chest pain type: unspecified Qualified Codes: R07.9 - Chest pain, unspecified (2) Vascular dementia: Dementia behavioral disturbance: without behavioral disturbance Qualified Codes: F01.50 - Vascular dementia without behavioral disturbance (3) Hypertension: Hypertension type: essential hypertension Qualified Codes: I10 - Essential (primary) hypertension (4) Hyperlipemia: Hyperlipidemia type: mixed hyperlipidemia Qualified Codes: E78.2 - Mixed hyperlipidemia MOHAN STONE DO Dec 03, 2018 13:26
[2018-12-03 15:09] VITALS: BP 192/78
--- NOTE | 2018-12-03 15:29 | Progress Note-Cardiology ---
Cardiology SOAP Progress Note Subjective: No cp or palp or syncope or shortness of breath Wishes to go home Objective: I&O/Vital Signs 12/03/18 12/03/18 12/03/18 12/03/18 04:04 07:00 08:13 12:07 Temp 98.1 97.2 97.2 Pulse 56 54 52 51 Resp 18 17 19 B/P (MAP) 151/76 (101) 156/70 (98) 192/78 (116) Pulse Ox 98 98 99 O2 Delivery Room Air Room Air Room Air O2 Flow Rate 0.00 0.00 12/03/18 13:00 Pulse 51 12/03/18 00:00 Intake Total 1540 ml Output Total 1850 ml Balance -310 ml Weight (Pounds): 132 Weight (Ounces): 5.0 Weight (Calculated Kilograms): 60.012661 Constitutional: AAO x 3, well-developed, well-nourished Respiratory: No accessory muscle use; lungs clear to percussion, lungs clear to auscultation Cardiovascular: regular rate-rhythm, S1 and S2, systolic murmur (soft KRISTY at card base) Gastrointestional: No tender; soft; No guarding, No rebound; audible bowel sounds Extremities: No clubbing, No cyanosis, No significant edema Neurologic/Psychiatric: oriented x 3, other (moves all limbs equally) Skin: No rash on exposed areas, No ulcerations on exposed areas Results/Procedures: Labs Laboratory Tests 12/02/18 18:31: Troponin I < 0.028 12/02/18 23:41: Troponin I < 0.028 12/03/18 04:40: Troponin I < 0.028, White Blood Count 6.1, Red Blood Count 4.16L, Hemoglobin 12.3, Hematocrit 39, Mean Corpuscular Volume 93, Mean Corpuscular Hemoglobin 30, Mean Corpuscular Hemoglobin Concent 32, Red Cell Distribution Width 13.0, Platelet Count 239, Mean Platelet Volume 11.0H, Neutrophils (%) (Auto) 57, Lymphocytes (%) (Auto) 27, Monocytes (%) (Auto) 12, Eosinophils (%) (Auto) 2, Basophils (%) (Auto) 1, Neutrophils # (Auto) 3.5, Lymphocytes # (Auto) 1.6, Monocytes # (Auto) 0.7, Eosinophils # (Auto) 0.1, Basophils # (Auto) 0.1, Sodium Level 142, Potassium Level 3.7, Chloride Level 108H, Carbon Dioxide Level 24, Anion Gap 10, Blood Urea Nitrogen 11, Creatinine 0.78, Estimat Glomerular Filtration Rate > 60, BUN/Creatinine Ratio 14, Glucose Level 93, Calcium Level 9.0, Corrected Calcium 9.2, Total Bilirubin 0.5, Aspartate Amino Transf (AST/SGOT) 18, Alanine Aminotransferase (ALT/SGPT) 13, Alkaline Phosphatase 64, Total Protein 5.6L, Albumin 3.7 Laboratory Tests 12/02/18 08:55 12/03/18 04:40 A/P: Assessment: Chest discomfort of undetermined etiology, no evidence of acute coronary syndrome CAD. H/o cor stents at [place], [place] more than 10 years ago. No details known to pt or family Echo of 12/03/18: LVEF 60-65%, mild MR, mild to mod AI, PASP 22 mmHg H/o TIAs (as reported by her family) Carotid u/s recommended, but she does not wish to stay for that Hypertension Mild dementia Plan: * She does not wish to stay for carotid u/s * We have advised continuation of ASA and oupt f/u * I spoke with her and her fam in detail and explained her cardiac w/u and answered questions DICK JOHNSON MD FACP FAC CCDS Dec 03, 2018 15:29
== END 2018-12-03 15:09 | disposition home or self-care (01) | DRG 313 ==
LOC: EDUNIT# 08:42 → ER FS 08:43 → 4TH 10:26
PROVIDERS: ADMIT Internal Medicine; ATTEND Internal Medicine
DX: R07.9 Chest pain, unspecified (principal); I25.10 Atherosclerotic heart disease of native coronary artery without angina pectoris; I10 Essential (primary) hypertension; F01.50 Vascular dementia, unspecified severity, without behavioral disturbance, psychotic disturbance, mood disturbance, and anxiety; E78.2 Mixed hyperlipidemia; K21.9 Gastro-esophageal reflux disease without esophagitis; R41.3 Other amnesia; Z88.2 Allergy status to sulfonamides; Z88.1 Allergy status to other antibiotic agents; Z95.5 Presence of coronary angioplasty implant and graft; Z86.73 Personal history of transient ischemic attack (TIA), and cerebral infarction without residual deficits; Z79.890 Hormone replacement therapy
CPT/HCPCS: 36415; 71045; 80053; 81000; 83690; 84484; 85025; 85379; 87088; 93005; 93306; G0378

== ENCOUNTER 2019-06-15 15:53 | Emergency (ER) | payer OTHER, MEDICAID ==
[~2019-06-15] VITALS: Ht 165.1 cm; Wt 58.3 kg
[~2019-06-15 15:53] MED LIST changes: +DONE10TA12 PO; +ESTR0.5T3 PO; +LISI-556 PO; +MEMA10TA2 PO
[2019-06-15] MEDS ORDERED: CIPR500T4 (16:20)
[2019-06-15] MEDS ORDERED: [UNRECOGNIZED DRUG - CODE] (16:20)
[2019-06-15 17:07] LABS: CLARITY,URINE TURBID; COLOR,URINE RED; GLUCOSE, URINE (UA) TRACE (NEGATIVE); KETONES,URINE 1+ (NEGATIVE); NITRITE,URINE POSITIVE (NEGATIVE); PH,URINE 7.5 (5-9); PROTEIN,URINE 3+ (NEGATIVE)
[2019-06-15 17:08] LABS: BACTERIA,URINE FEW /HPF; BILIRUBIN,URINE 2+ (NEGATIVE); LEUKOCYTE ESTERASE ,URINE 3+ (NEGATIVE); RBC,URINE TNTC /HPF; SQUAMOUS EPITHELIAL CELL,UR 0-2 /HPF
--- NOTE | 2019-06-15 17:17 | ED GU-Female ---
General Chief Complaint: - Urinary Stated Complaint: BLOOD IN URINE Nursing Triage Note: Pt presents to ED from [facility] Clinic referrred by Nasra RAHMAN for hematuria. Pt had been started on Cipro yesterday from UA collected on 06/13/19 at clinic. Pt referred to ED as low back pain and suprapubic region burning sensation. Urine reported as "rachelle" red. Nursing Sepsis Screen: No Definite Risk Source: patient, family Exam Limitations: no limitations History of Present Illness Date Seen by Provider: Jun 15, 2019 Time Seen by Provider: 16:35 Initial Comments Patient had onset of blood in her urine a few days ago, noted by her home health or assistant. A urine was sent to her primary care provider and she was started on an antibiotic (Cipro) yesterday. Patient followed up with her PCP today due to the blood in her urine and some low back aching as well as lower abdominal discomfort. Denies any fever or chills. Denies nausea vomiting. Denies any confusion. She does take aspirin and Plavix but denies history of any bleeding problems. Severity/Quality: mild Radiation: none Activities at Onset: none Prior Genitourinary Problems: none Allergies and Home Medications Allergies Coded Allergies: Sulfa (Sulfonamide Antibiotics) (Verified Allergy, Unknown, 12/02/18) erythromycin base (Verified Allergy, Unknown, 12/02/18) adhesive tape (Verified Adverse Reaction, Unknown, 12/02/18) gatifloxacin (Verified Adverse Reaction, Unknown, 12/02/18) salsalate (Verified Adverse Reaction, Unknown, 12/02/18) tramadol (Verified Adverse Reaction, Unknown, 12/02/18) Home Medications Aspirin 81 Mg Tabec, 81 MG PO DAILY, (Reported) Calcium Carbonate/Vitamin D3 1 Each Tablet, 1 EACH PO DAILY, (Reported) Carvedilol 6.25 Mg Tablet, 1 EACH PO BID, (Reported) Clopidogrel Bisulfate 75 Mg Tablet, 1 EACH PO DAILY, (Reported) Donepezil HCl 10 Mg Tablet, 10 MG PO HS Prescribed by: JAELYN MONTENEGRO on 12/02/18 1504 Estradiol 0.5 Mg Tablet, 0.5 MG PO DAILY Prescribed by: JAELYN MONTENEGRO on 12/02/18 1502 Lisinopril 5 Mg Tablet, 5 MG PO DAILY Prescribed by: JAELYN MONTENEGRO on 12/02/18 1512 Memantine HCl 10 Mg Tablet, 10 MG PO BID Prescribed by: JAELYN MONTENEGRO on 12/02/18 1506 Multivitamins 1 Tab Tablet, 1 TAB PO DAILY, (Reported) Nitroglycerin 0.4 Mg Subl, 0.4 MG SL NEEDED, (Reported) Phenazopyridine HCl 200 Mg Tablet, 1 TAB PO Q8H Prescribed by: BE MAYBERRY on 06/15/19 1723 Rosuvastatin Calcium 10 Mg Tablet, 1 EACH PO every other day, (Reported) Patient Home Medication List Home Medication List Reviewed: Yes Review of Systems Review of Systems Constitutional: No fever, No malaise, No weakness Respiratory: No cough, No dyspnea on exertion Cardiovascular: no symptoms reported Gastrointestinal: see HPI; No diarrhea, No hematemesis, No heartburn, No loss of appetite, No nausea, No vomiting Genitourinary: see HPI, dysuria (slight discomfort); denies flank pain; hematuria (dark urine) Musculoskeletal: no symptoms reported, back pain (lower back , no flank pain) Past Cmhvatg-Bxdysz-Jgrdav Hx Past Med/Social Hx: Reviewed Nursing Past Med/Soc Hx Patient Social History Alcohol Use: Denies Use Recreational Drug Use: No Smoking Status: Never a Smoker 2nd Hand Smoke Exposure: No Recent Foreign Travel: No Contact w/Someone Who Travel: No Recent Infectious Disease Expo: No Recent Hopitalizations: No Physical Abuse: No Sexual Abuse: No Mistreated: No Fear: No Immunizations Up To Date Date of Pneumonia Vaccine: Mar 15, 2018 Seasonal Allergies Seasonal Allergies: No Past Medical History Surgeries: Yes (Bladder suspension, EGD, Colonoscopy, Excision Tumor Left Mandible, ) Appendectomy, Bladder Surgery, Cardiac, Coronary Stent, Gallbladder, Hysterectomy Respiratory: No Cardiac: Yes (stents x 2, September 2009, CVD, Chest pain) Coronary Artery Disease, High Cholesterol, Hypertension Dementia, 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 5.0oz. 60.020945vb; 21.00 BMI Method:Stated General Appearance: WD/WN, no apparent distress Cardiovascular: regular rate, rhythm, no edema, no JVD Respiratory: chest non-tender, lungs clear, normal breath sounds Gastrointestinal: normal bowel sounds, soft; No distended, No guarding, No rebound; tenderness (minimal suprapubic tenderness without guarding or rebound) Back: no CVA tenderness, no vertebral tenderness Neurologic/Psychiatric: alert, normal mood/affect Skin: normal color, warm/dry Progress/Results/Core Measures Suspected Sepsis Recent Fever Within 48 Hours: No Infection Criteria Present: Suspected New Infection New/Unexplained Altered Menta: No Sepsis Screen: No Definite Risk SIRS Temperature: Pulse: 67 Respiratory Rate: 14 Blood Pressure 0 /0 Mean: 0 Results/Orders Lab Results Laboratory Tests Test 06/15/19 16:55 Range/Units Urine Color RED H Urine Clarity TURBID Urine pH 7.5 5-9 Urine Specific [place] 1.020 1.016-1.022 Urine Protein 3+ H NEGATIVE Urine Glucose (UA) TRACE H NEGATIVE Urine Ketones 1+ H NEGATIVE Urine Nitrite POSITIVE H NEGATIVE Urine Bilirubin 2+ H NEGATIVE Urine Urobilinogen >=8.0 < = 1.0 MG/DL Urine Leukocyte Esterase 3+ H NEGATIVE Urine RBC (Auto) 3+ H NEGATIVE Urine RBC TNTC H /HPF Urine WBC 5-10 H /HPF Urine Squamous Epithelial Cells 0-2 /HPF Urine Crystals NONE /LPF Urine Bacteria FEW H /HPF Urine Casts NONE /LPF Urine Mucus NEGATIVE /LPF Urine Culture Indicated YES My Orders Orders - BE MAYBERRY DO Urinalysis (06/15/19 15:59) Urine Culture (06/15/19 16:55) Phenazopyridine Tablet (Pyridium Tablet) (06/15/19 17:30) Phenazopyridine Tablet (Pyridium Tablet) (06/15/19 17:23) Medications Given in ED Current Medications Medications Dose Ordered Sig/Dianelys Route Start Time Stop Time Status Last Admin Dose Admin Phenazopyridine HCl 100 mg ONCE ONCE PO 06/15/19 17:30 06/15/19 17:28 DC 06/15/19 17:28 100 MG Vital Signs/I&O 06/15/19 06/15/19 15:55 17:28 Temp 36.4 36.2 Pulse 67 67 Resp 14 16 B/P (MAP) 139/58 (85) 136/52 (0) Pulse Ox 99 98 O2 Delivery Room Air Room Air Capillary Refill : Less Than 3 Seconds Blood Pressure Mean: 0 Progress Note : Progress Note discussed stopping ASA and Plavix w patients daughter. Also advised to see PCP in 1 wk for re-evaluation. Advised to f/u to the ER if onset of dizziness, weakness or fever. Advised to continue Cipro and new Rx given for Pyridium for 2 days. Departure Impression Primary Impression: Gross hematuria Disposition: HOME, SELF-CARE Condition: Stable Departure-Patient Inst. Decision time for Depature: 17:23 Referrals: APRIL EDMONDS MD (PCP/Family) Primary Care Physician Patient Instructions: Blood in the Urine (Hematuria), Adult (DC) Add. Discharge Instructions: STOP the following medications: Aspirin Plavix Do not restart them until you discuss it with Dr Edmonds All discharge instructions reviewed with patient and/or family. Voiced understanding. Scripts Phenazopyridine HCl (Pyridium) 200 Mg Tablet 1 TAB PO Q8H for Discomfort, #6 TAB Prov: BE MAYBERRY DO 06/15/19 BE MAYBERRY DO Jun 15, 2019 17:17
[2019-06-15] MEDS ORDERED: PHEN-640 PO (17:23)
[2019-06-15] MEDS ORDERED: PHENAZOPYRIDINE 100 MG (PYRIDIUM) TABLET ONE (17:23)
[2019-06-15 17:28] VITALS: BP 136/52
[2019-06-15] MEDS ORDERED: PHENAZOPYRIDINE 100 MG (PYRIDIUM) TABLET PO ONE (17:30)
== END 2019-06-15 17:28 | disposition home or self-care (01) ==
LOC: EDUNIT# 15:53 → ER FS 15:54
DX: R31.0 Gross hematuria (principal); I10 Essential (primary) hypertension; E78.00 Pure hypercholesterolemia, unspecified; I25.10 Atherosclerotic heart disease of native coronary artery without angina pectoris; F03.90 Unspecified dementia, unspecified severity, without behavioral disturbance, psychotic disturbance, mood disturbance, and anxiety; K21.9 Gastro-esophageal reflux disease without esophagitis; M79.7 Fibromyalgia; Z86.73 Personal history of transient ischemic attack (TIA), and cerebral infarction without residual deficits; Z88.2 Allergy status to sulfonamides; Z88.1 Allergy status to other antibiotic agents; Z88.8 Allergy status to other drugs, medicaments and biological substances; Z88.5 Allergy status to narcotic agent; Z79.82 Long term (current) use of aspirin; Z79.01 Long term (current) use of anticoagulants; Z79.52 Long term (current) use of systemic steroids; Z90.49 Acquired absence of other specified parts of digestive tract; Z95.5 Presence of coronary angioplasty implant and graft; Z90.710 Acquired absence of both cervix and uterus
CPT/HCPCS: 81000; 87088; 99283

== ENCOUNTER 2021-01-13 07:25 | Emergency (ER) | payer MEDICARE, MEDICAID ==
[~2021-01-13] VITALS: Ht 167 cm; Wt 65.0 kg
[~2021-01-13 07:25] MED LIST changes: +CIPR500T5; -LISI-556 PO; +LISI-729 PO; +PHEN-640 PO; +[UNRECOGNIZED DRUG - CODE]
[2021-01-13 07:29] VITALS: BP 172/69
--- NOTE | 2021-01-13 08:18 | Diagnostic Imaging Report ---
CLINICAL HISTORY: Trauma. Pelvic pain. COMPARISON: None. TECHNIQUE: 3 views of the pelvis and right hip. FINDINGS: There is no acute fracture or dislocation of the pelvis and bilateral hips. Alignment is anatomic. The imaged joint spaces are preserved. Phleboliths are noted in the pelvis. A large amount of stool is present. IMPRESSION: 1. No acute fracture or dislocation in the pelvis and bilateral hips. Dictated by: Dictated on workstation # [id number]
--- NOTE | 2021-01-13 08:29 | ED Lower Extremity ---
General Chief Complaint: Lower Extremity Stated Complaint: FALL; RT HIP INJ Nursing Triage Note: PT FELL ONTO HER RIGHT HIP THIS AM. IS ABLE TO AMBULATE. NO SHORTENING OR ROTATION NOTED. Source: patient Exam Limitations: no limitations History of Present Illness Date Seen by Provider: Jan 13, 2021 Time Seen by Provider: 07:15 Initial Comments Patient is an 89-year-old female who presents with right hip pain. Patient states she has had hip pain from sitting on the floor and then standing up and sitting on chair 30 minutes prior to arrival. She denies trauma to this region but reports persistent right posterior hip pain worse with weightbearing and ambulation. Denies fall or direct trauma. No medications or therapies. Onset: just prior to arrival Severity: moderate Pain/Injury Location: right hip Method of Injury: other Allergies and Home Medications Allergies Coded Allergies: Sulfa (Sulfonamide Antibiotics) (Verified Allergy, Unknown, 12/02/18) erythromycin base (Verified Allergy, Unknown, 12/02/18) adhesive tape (Verified Adverse Reaction, Unknown, 12/02/18) gatifloxacin (Verified Adverse Reaction, Unknown, 12/02/18) salsalate (Verified Adverse Reaction, Unknown, 12/02/18) tramadol (Verified Adverse Reaction, Unknown, 12/02/18) Home Medications Aspirin 81 Mg Tabec, 81 MG PO DAILY, (Reported) Calcium Carbonate/Vitamin D3 1 Each Tablet, 1 EACH PO DAILY, (Reported) Carvedilol 6.25 Mg Tablet, 1 EACH PO BID, (Reported) Clopidogrel Bisulfate 75 Mg Tablet, 1 EACH PO DAILY, (Reported) Donepezil HCl 10 Mg Tablet, 10 MG PO HS Prescribed by: JAELYN MONTENEGRO on 12/02/18 1504 Estradiol 0.5 Mg Tablet, 0.5 MG PO DAILY Prescribed by: JAELYN MONTENEGRO on 12/02/18 1502 Lisinopril 5 Mg Tablet, 5 MG PO DAILY Prescribed by: JAELYN MONTENEGRO on 12/02/18 1512 Memantine HCl 10 Mg Tablet, 10 MG PO BID Prescribed by: JAELYN MONTENEGRO on 12/02/18 1506 Multivitamins 1 Tab Tablet, 1 TAB PO DAILY, (Reported) Nitroglycerin 0.4 Mg Subl, 0.4 MG SL NEEDED, (Reported) Phenazopyridine HCl 200 Mg Tablet, 1 TAB PO Q8H Prescribed by: BE MAYBERRY on 06/15/19 1723 Rosuvastatin Calcium 10 Mg Tablet, 1 EACH PO every other day, (Reported) Patient Home Medication List Home Medication List Reviewed: Yes Review of Systems Constitutional: see HPI EENTM: see HPI Respiratory: see HPI Cardiovascular: see HPI Gastrointestinal: see HPI Genitourinary: see HPI Musculoskeletal: see HPI Skin: see HPI Psychiatric/Neurological: See HPI All Other Systems Reviewed Negative Unless Noted: Yes Past Ankcibt-Ejiicp-Ngqbcu Hx Patient Social History Tobacco Use?: Yes Use of E-Cig and/or Vaping dev: No Substance use?: No Alcohol Use?: No Pt feels they are or have been: No Seasonal Allergies Seasonal Allergies: No Past Medical History Surgeries: Yes (Bladder suspension, EGD, Colonoscopy, Excision Tumor Left Mandible, ) Appendectomy, Bladder Surgery, Cardiac, Coronary Stent, Gallbladder, Hysterectomy Respiratory: No Cardiac: Yes (stents x 2, September 2009, CVD, Chest pain) Coronary Artery Disease, High Cholesterol, Hypertension 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 5.0oz. 60.601259lt; 23.00 BMI Method:Stated General Appearance: WD/WN HEENT: PERRL/EOMI, normal ENT inspection Neck: non-tender, full range of motion, supple Cardiovascular: normal peripheral pulses, regular rate, rhythm Respiratory: chest non-tender, lungs clear Gastrointestinal: non tender, soft Hips: right hip bone tenderness Neurologic/Tendon: normal sensation, normal motor functions Neurologic/Psychiatric: visual coordinator II-XII nml as tested, no motor/sensory deficits, oriented x 3 Skin: normal color Progress/Results/Core Measures Results/Orders My Orders Orders - WATSON CLAROS DO Pelvis With Right Hip 2-3 View (01/13/21 07:42) Vital Signs/I&O 01/13/21 07:29 Temp 36.3 Pulse 58 Resp 18 B/P (MAP) 172/69 (103) Pulse Ox 100 O2 Delivery Room Air Blood Pressure Mean: 103 Departure Communication (Admissions) Pelvis/bhip: No obvious displaced fracture per radiology report. No evidence of fracture. Tylenol given. Patient instructed to use walker and follow-up with PCP for further evaluation. Return precautions reviewed. Impression Primary Impression: Posterior pain of right hip Disposition: HOME, SELF-CARE Condition: Stable Departure-Patient Inst. Decision time for Depature: 08:29 Referrals: APRIL CASTANEDA MD (PCP/Family) Primary Care Physician Patient Instructions: Hip Pain Add. Discharge Instructions: Please take Tylenol for pain and use walker to assist with ambulation. Follow- up with your PCP for further evaluation. All discharge instructions reviewed with patient and/or family. Voiced understanding. WATSON CLAROS DO Jan 13, 2021 08:29
[2021-01-13] MEDS ORDERED: ACETAMINOPHEN 325 MG TABLET PO ONE (08:30)
== END 2021-01-13 09:04 | disposition home or self-care (01) ==
LOC: EDUNIT# 07:25 → ER FS 07:28
DX: M25.551 Pain in right hip (principal); I10 Essential (primary) hypertension; E78.00 Pure hypercholesterolemia, unspecified; I25.10 Atherosclerotic heart disease of native coronary artery without angina pectoris; Z86.73 Personal history of transient ischemic attack (TIA), and cerebral infarction without residual deficits; Z79.82 Long term (current) use of aspirin; Z79.01 Long term (current) use of anticoagulants; Z79.899 Other long term (current) drug therapy
CPT/HCPCS: 73502

== ENCOUNTER → 2021-01-28 | Outpatient (CLI) | payer MEDICARE, MEDICAID ==
--- NOTE | 2021-01-28 15:31 | Diagnostic Imaging Report ---
PROCEDURE: CT head without contrast. TECHNIQUE: Multiple contiguous axial images were obtained through the brain without the use of intravenous contrast. Auto Exposure Controls were utilized during the CT exam to meet ALARA standards for radiation dose reduction. INDICATION: Fall hitting the back of the head. COMPARISON: No prior studies are available for comparison. FINDINGS: The ventricles and sulci are prominent consistent with the patient's age. There is periventricular hypodensity noted consistent with senescent change. No sulcal effacement or midline shift is identified. No acute intra-axial or extra-axial hemorrhage is detected. Cisterns are patent. Visualized paranasal sinuses are clear. IMPRESSION: Chronic and senescent changes. No acute intracranial process is detected. Dictated by: Dictated on workstation # [id number]
== END ==
LOC: RAD FS 15:00
PROVIDERS: ATTEND Family Medicine
DX: G45.9 Transient cerebral ischemic attack, unspecified (principal); W19.XXXA Unspecified fall, initial encounter
CPT/HCPCS: 70450

== ENCOUNTER 2021-02-10 07:30 | Emergency (ER) | payer MEDICARE, MEDICAID ==
[~2021-02-10] VITALS: Ht 162 cm; Wt 65.0 kg
[2021-02-10] MEDS ORDERED: LIDOCAINE/EPI 2% 1:100,00 (XYLOCAINE) 20 ML VIAL INJ STA (07:41)
[2021-02-10] MEDS ORDERED: fentaNYL INJ 100 MCG/2 ML AMP IVP STA (07:41)
--- NOTE | 2021-02-10 07:55 | ED Fall/Injury ---
General Chief Complaint: Trauma-Non Activation Stated Complaint: FALL; LT EYE LAC Nursing Triage Note: PT STEPPED OFF A STEP THIS AM WITHOUT HER WALKER AND FELL AND HIT THE LEFT SIDE OF HER FOREHEAD, SHOULDER, HIP, AND KNEE. PT HAS A LARGE, UNAPPROXIMATED LACERATION AND SKIN TEAR ABOVE HER LEFT EYE. NO LOC. Source: patient, EMS, skilled nursing records, old records History of Present Illness Date Seen by Provider: Feb 10, 2021 Time Seen by Provider: 07:31 Initial Comments 89-year-old female presenting with complaints of left-sided body pain. She has dementia and is supposed to use a cane or walker to help with ambulation. She was walking this morning and did not use any assistance and fell hitting the left side of her body. She has a large complex laceration to her left forehead and eyebrow. She is unsure if she lost consciousness and does not actually remember the events. With her dementia it is unsure if she would remember anyway. She is not taking any blood thinner. She does have some chronic back and shoulder pain. She is not specifically complaining of neck pain. She kristine es any change in her vision, nausea, vomiting. There is no drainage from her nose or ears. Occurred: just prior to arrival Injuries/Pain Location: head, face, chest, abdomen, back, pelvis Context: other (walking without her walker or cane for assistance) Loss of Consciousness: unsure Modifying Factors: Worse With Movement Associated Symptoms (Fall): Abdominal Pain (left sided), Chest Pain (left sided), Confusion (chronic dementia so difficult to assess if any change from baseline); No Dizziness; Headache; No Nausea/Vomiting, No Neck Pain, No Ringing in Ears, No Seizures, No Shortness of Air, No Slurred Speech; Trouble Walking ( chronic); No Vision Changes Allergies and Home Medications Allergies Coded Allergies: Sulfa (Sulfonamide Antibiotics) (Verified Allergy, Unknown, 12/02/18) erythromycin base (Verified Allergy, Unknown, 12/02/18) adhesive tape (Verified Adverse Reaction, Unknown, 12/02/18) gatifloxacin (Verified Adverse Reaction, Unknown, 12/02/18) salsalate (Verified Adverse Reaction, Unknown, 12/02/18) tramadol (Verified Adverse Reaction, Unknown, 12/02/18) Patient Home Medication List Home Medication List Reviewed: Yes Aspirin (Aspirin Ec 81 Mg) 81 Mg Tabec, 81 MG PO DAILY, (Reported) Entered as Reported by: GEORGE CALVILLO on 07/17/10 1533 Calcium Carbonate/Vitamin D3 (Calcium 500 + D Tablet) 1 Each Tablet, 1 EACH PO DAILY, (Reported) Entered as Reported by: GEORGE CALVILLO on 07/17/10 1533 Carvedilol (Carvedilol) 6.25 Mg Tablet, 1 EACH PO BID, (Reported) Entered as Reported by: GEORGE CALVILLO on 07/17/10 153 Cephalexin (Cephalexin) 500 Mg Capsule, 500 MG PO TID Prescribed by: AASHISH ROBINS on 02/10/21 0958 Ciprofloxacin HCl (Ciprofloxacin HCl) 500 Mg Tablet, (Reported) Entered as Reported by: JEANNINE MARKHAM on 06/15/19 1620 Clopidogrel Bisulfate (Plavix 75 Mg) 75 Mg Tablet, 1 EACH PO DAILY, (Reported) Entered as Reported by: GEORGE CALVILLO on 07/17/10 153 Donepezil HCl (Aricept) 10 Mg Tablet, 10 MG PO HS Prescribed by: JAELYN MONTENEGRO on 12/02/18 1504 Estradiol (Estrace Tablet) 0.5 Mg Tablet, 0.5 MG PO DAILY Prescribed by: JAELYN MONTENEGRO on 12/02/18 1502 Lisinopril (Lisinopril) 5 Mg Tablet, 5 MG PO DAILY Prescribed by: JAELYN MONTENEGRO on 12/02/18 1512 Memantine HCl (Namenda) 10 Mg Tablet, 10 MG PO BID Prescribed by: JAELYN MONTENEGRO on 12/02/18 1506 Multivitamins (Multiple Vitamin) 1 Tab Tablet, 1 TAB PO DAILY, (Reported) Entered as Reported by: GEORGE CALVILLO on 07/17/10 1533 Naproxen Sodium (All Day Relief) 220 Mg Tablet, (Reported) Entered as Reported by: JEANNINE MARKHAM on 06/15/19 1620 Nitroglycerin (Nitrostat) 0.4 Mg Subl, 0.4 MG SL NEEDED, (Reported) Entered as Reported by: GEORGE CALVILLO on 07/17/10 153 Phenazopyridine HCl (Pyridium) 200 Mg Tablet, 1 TAB PO Q8H Prescribed by: BE MAYBERRY on 06/15/19 1723 Rosuvastatin Calcium (Crestor) 10 Mg Tablet, 1 EACH PO every other day, (Reported) Entered as Reported by: GEORGE CALVILLO on 07/17/10 1533 Review of Systems Review of Systems Constitutional: No dizziness, No fever Eyes: See HPI Ears, Nose, Mouth, Throat: denies ear discharge, denies nose discharge, denies epistaxis Respiratory: No cough, No short of breath Cardiovascular: chest pain (left side of chest) Gastrointestinal: abdominal pain (left side of abdomen into pelvis); No nausea, No vomiting Genitourinary: no symptoms reported Musculoskeletal: see HPI Skin: see HPI Psychiatric/Neurological: See HPI Past Nyybazz-Fnobud-Uwdfbf Hx Patient Social History Tobacco Use?: No Use of E-Cig and/or Vaping dev: No Substance use?: No Alcohol Use?: No Pt feels they are or have been: No Seasonal Allergies Seasonal Allergies: No Past Medical History Surgery/Hospitalization HX: Chronic Dementia Surgeries: Yes (Bladder suspension, EGD, Colonoscopy, Excision Tumor Left Mandible, ) Appendectomy, Bladder Surgery, Cardiac, Coronary Stent, Gallbladder, Hysterectomy Respiratory: No Cardiac: Yes (stents x 2, September 2009, CVD, Chest pain) Coronary Artery Disease, High Cholesterol, Hypertension Dementia, TIA [employer]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 5.0oz. [id number]; 24.00 BMI Method:Stated General Appearance: no apparent distress HEENT: PERRL/EOMI, other (negative garcia sign, raccoon sign. No CSF otorrhea, rhinorrhea) Neck: non-tender, full range of motion, supple Cardiovascular: normal peripheral pulses, regular rate, rhythm Respiratory: lungs clear, normal breath sounds, no respiratory distress, no accessory muscle use, other (tender to palpation left chest and abdomen) Gastrointestinal: normal bowel sounds, soft, no pulsatile mass; No distended, No guarding, No rebound; tenderness (mild tenderness to left side of abdomen and pelvis bilateral hips) Rectal: deferred Extremities: normal range of motion, normal capillary refill, other (complains of pain with light touch to anywhere on left side. moving all extremities) Neurologic/Psychiatric: alert; No oriented x 3 (oriented to self only) Skin: warm/dry [place] Coma Score Best Eye Response: (4) Open Spontaneously Best Verbal Response: (4) Confused Conversation (oriented to self only, but with her underlying dementia she has confused conversations) Best Motor Response: (6) Obeys Commands [place] Total: 14 Procedures/Interventions Wound Location: Face (left forehead/eyebrow) Wound Length (cm): 16.8 Wound's Depth, Shape: into muscle, irregular, flap, contused tissue, sub Q Wound Explored: contaminated with gravel and debris that was removed Irrigated w/ Saline (ccs): 500 Anesthesia: Lidocaine w/ Epi Volume Anesthetic (ccs): 14 Suture: Prolene Suture Size: 5-0 Number of Sutures: 20 Layer Closure?: 1 Sterile Dressing Applied?: Yes Progress After obtaining verbal consent from the patient the wound was anesthetized with lidocaine with epinephrine. A total of 14 mils of anesthetic was used. Then the wound was scrubbed with gauze pads and saline with chlorhexidine scrub soap. Several foreign bodies and gravel debris were removed. Then 500 mils of sterile water with chlorhexidine scrub soap were used to irrigate and flush the wound. No further foreign bodies were visualized or palpated. The wound edges were then approximated using 5-0 Prolene. A total of 20 simple interrupted stitches were placed to close the complex flap laceration which totalled 16.8 cm. Patient tolerated procedure relatively well without any immediate complications. Wound was cleaned and dressed with sterile dressing. Counseled on follow-up and return precautions. Her daughter states patient has an appointment with Dr. Edmonds on Tuesday for routine follow-up so she could have the stitches removed then, or could wait until later in the week. Progress/Results/Core Measures Results/Orders Lab Results Laboratory Tests Test 02/10/21 07:45 Range/Units White Blood Count 13.1 H 4.3-11.0 10^3/uL Red Blood Count 4.40 3.80-5.11 10^6/uL Hemoglobin 13.4 11.5-16.0 g/dL Hematocrit 41 35-52 % Mean Corpuscular Volume 94 80-99 fL Mean Corpuscular Hemoglobin 31 25-34 pg Mean Corpuscular Hemoglobin Concent 32 32-36 g/dL Red Cell Distribution Width 12.3 10.0-14.5 % Platelet Count 276 130-400 10^3/uL Mean Platelet Volume 11.1 9.0-12.2 fL Immature Granulocyte % (Auto) 1 % Neutrophils (%) (Auto) 78 H 42-75 % Lymphocytes (%) (Auto) 13 12-44 % Monocytes (%) (Auto) 7 0-12 % Eosinophils (%) (Auto) 1 0-10 % Basophils (%) (Auto) 1 0-10 % Neutrophils # (Auto) 10.3 H 1.8-7.8 X 10^3 Lymphocytes # (Auto) 1.6 1.0-4.0 X 10^3 Monocytes # (Auto) 1.0 0.0-1.0 X 10^3 Eosinophils # (Auto) 0.1 0.0-0.3 10^3/uL Basophils # (Auto) 0.1 0.0-0.1 10^3/uL Immature Granulocyte # (Auto) 0.1 0.0-0.1 10^3/uL Prothrombin Time 12.6 12.2-14.7 SEC INR Comment 0.9 0.8-1.4 Activated Partial Thromboplast Time 30 24-35 SEC Sodium Level 141 135-145 MMOL/L Potassium Level 4.4 3.6-5.0 MMOL/L Chloride Level 104 98-107 MMOL/L Carbon Dioxide Level 26 21-32 MMOL/L Anion Gap 11 5-14 MMOL/L Blood Urea Nitrogen 17 7-18 MG/DL Creatinine 0.94 0.60-1.30 MG/DL Estimat Glomerular Filtration Rate 56 BUN/Creatinine Ratio 18 Glucose Level 130 H 70-105 MG/DL Calcium Level 9.7 8.5-10.1 MG/DL Corrected Calcium 9.3 8.5-10.1 MG/DL Total Bilirubin 0.4 0.1-1.0 MG/DL Aspartate Amino Transf (AST/SGOT) 21 5-34 U/L Alanine Aminotransferase (ALT/SGPT) 13 0-55 U/L Alkaline Phosphatase 81 40-136 U/L Total Protein 7.2 6.4-8.2 GM/DL Albumin 4.5 3.2-4.5 GM/DL My Orders Orders - AASHISH ROBINS MD Comprehensive Metabolic Panel (02/10/21 07:39) Ed Iv/Invasive Line Start (02/10/21 07:39) Cbc With Automated Diff (02/10/21 07:39) Protime With Inr (02/10/21 07:39) Partial Thromboplastin Time (02/10/21 07:39) Suture Set At Bedside (02/10/21 07:39) Lidocaine/Epi 2% 1:100,000 (Xylocaine/Ep (02/10/21 07:41) Fentanyl Inj (Sublimaze Injection) (02/10/21 07:41) Ct Head/Face/Cervical Wo (02/10/21 07:42) Ct Chest/Abdomen/Pelvis Wo (02/10/21 07:42) Shoulder 3 View Left (02/10/21 07:42) Ceftriaxone (Rocephin) (02/10/21 09:49) Dipht,Pertuss(Acell),Tet Adult (Boostrix (02/10/21 10:00) Medications Given in ED Current Medications Medications Dose Ordered Sig/Dianelys Route Start Time Stop Time Status Last Admin Dose Admin Diphtheria/ Tetanus/Acell Pertussis 0.5 ml ONCE ONCE IM 02/10/21 10:00 02/10/21 10:01 DC 02/10/21 09:55 0.5 ML Vital Signs/I&O 02/10/21 02/10/21 07:33 09:49 Temp 36.5 36.5 Pulse 76 72 Resp 18 18 B/P (MAP) 161/97 (118) 142/62 Pulse Ox 99 99 O2 Delivery Room Air Blood Pressure Mean: 118 Progress Progress Note #1: Progress Note With her dementia and unsure of extent of injury as she is complaining of pain everywhere will check labs and CT scan of head, face, cervical spine to look for intracranial hemorrhage, facial fracture, cervical spine fracture, skull fracture. CT chest/abdomen/pelvis to evaluate for rib fractures, spine compression fractures, abdominal visceral injury, pelvic or hip fractures. For pain will give a single dose of Fentanyl 50 mcg to try and help her also tolerate imaging and wound repair better. Will use Lidocaine with Epinephrine on forehead laceration due to the extent of wound and will require extended time to clean and reapproximate wound edges as well as helping with constricting blood vessels to limit bleeding. Progress Note #2: Progress Note When patient came back from CT I worked on repairing the forehead/eyebrow laceration while waiting on test results. When finished the repair of complex laceration she had results back and they showed no acute fractures or internal bleeding. Labs appear stable as well. Update tetanus and treat with antibiotics since she had gravel and debris in the wound. Rocephin 1 gm IV here and Keflex 500 TID x 7 days sent to [facility] [place] in [place] for the MO. Diagnostic Imaging Diagonstic Imaging: CT Plain Films/CT/US/NM/MRI: facial bones, c-spine, head Comments [facility], [place] NAME: [facility] REC#: [id number] PT STATUS: REG ER : 1930 PHYSICIAN: AASHISH ROBINS MD ADMIT DATE: 02/10/21/ER FS Draft Date of Exam:02/10/21 CT HEAD/FACE/CERVICAL WO PROCEDURE: CT head, face, and cervical spine without contrast. TECHNIQUE: Multiple contiguous axial images were obtained through the head, neck, and facial bones without the use of intravenous contrast. Sagittal and coronal reformations through the cervical spine and facial bones were also performed. Auto Exposure Controls were utilized during the CT exam to meet ALARA standards for radiation dose reduction. INDICATION: Fall with headache and facial laceration and neck pain. Comparison is made with head CT from 01/28/2021. CT HEAD: There appears to be soft tissue swelling in the left frontal scalp. The ventricles and sulci are prominent consistent with the patient's age. No sulcal effacement or midline shift is identified. No acute intra-axial or extra-axial hemorrhage is detected. Cisterns are patent. IMPRESSION: Left frontal scalp swelling and laceration. There are some punctate opacities within the soft tissues which may represent foreign bodies. No acute intracranial process is detected. CT cervical spine: Curvature of the cervical spine is normal. There is minimal retrolisthesis of C3 on C4. There is minimal anterolisthesis of C4 on C5 and retrolisthesis of C5 on C6. Severe degenerative disc disease C3-C4 and C5-C6 levels as noted with disc space narrowing and marginal spurring. There is multilevel facet arthropathy. No fractures are identified. Prevertebral tissues are within normal limits. Odontoid is intact. IMPRESSION: Multilevel cervical spondylosis and listhesis. No acute bony abnormality is detected. CT face: There is significant soft tissue swelling in the left frontal scalp. There is soft tissue gas present consistent with laceration. There are punctate opacities in the soft tissues which suggestive of foreign bodies. The mandible appears intact. The zygomatic arches are intact. The maxillary sinus alicea as well as the nasal bones and orbital alicea appear to be intact. The visualized paranasal sinuses are well aerated. IMPRESSION: Left frontal scalp soft tissue swelling and laceration with probable punctate soft tissue foreign bodies. No definite facial bone fracture is detected. Dictated on workstation # [id number] Dict: 02/10/21819 Trans: 02/10/2132 [id number] Interpreted by: RENA SHELBY MD Electronically signed by: Reviewed: Reviewed by Me Diagonstic Imaging: CT Plain Films/CT/US/NM/MRI: chest, abdomen, pelvis Comments [facility] [place] NAME: [facility] REC#: [id number] PT STATUS: REG ER : 1930 PHYSICIAN: AASHISH ROBINS MD ADMIT DATE: 02/10/21/ER FS Draft Date of Exam:02/10/21 CT CHEST/ABDOMEN/PELVIS WO PROCEDURE: CT chest, abdomen, and pelvis without contrast. TECHNIQUE: Multiple contiguous axial images were obtained through the chest, abdomen, and pelvis without the use of intravenous contrast. Auto Exposure Controls were utilized during the CT exam to meet ALARA standards for radiation dose reduction. INDICATION: Fall with pain to the left side of the body as well as back pain and hip pain. FINDINGS: CT CHEST: No definite mediastinal hematoma is identified. No pulmonary contusion or pneumothorax is identified. The ribs appear to be intact. The thoracic spine is intact. IMPRESSION: No acute feature in the chest is identified. CT ABDOMEN AND PELVIS: The liver contains circumscribed low-attenuation lesions, suggestive of cysts. The gallbladder is surgically absent. No definite hepatic or splenic injury is seen. There is no perihepatic or perisplenic fluid. The pancreas is unremarkable. No adrenal or renal hematoma is identified. There is a tiny nonobstructing calculus in the mid left kidney. The aorta is calcified but nonaneurysmal. The bowel loops are unremarkable apart from significant diverticulosis of the sigmoid and descending colon but no evidence of acute diverticulitis. There is no free fluid or evidence of hemoperitoneum. The lumbar spine is unremarkable. The bony pelvis and proximal femora appear to be intact. No acute bony abnormality is identified. IMPRESSION: 1. Probable hepatic cysts. 2. Nonobstructing left renal calculus. 3. Uncomplicated diverticulosis. 4. No evidence of abdominal or pelvic visceral injury. Dictated on workstation # [id number] Dict: 02/10/21834 Trans: 02/10/2142 [id number] Interpreted by: RENA SHELBY MD Electronically signed by: Reviewed: Reviewed by Me Diagonstic Imaging: Xray Plain Films/CT/US/NM/MRI: other (shoulder) Comments [facility] [place] NAME: [facility] REC#: [id number] PT STATUS: REG ER : 1930 PHYSICIAN: AASHISH ROBINS MD ADMIT DATE: 02/10/21/ER FS Signed Date of Exam:02/10/21 SHOULDER 3 VIEW LEFT INDICATION: Left shoulder pain after fall EXAMINATION: Left shoulder 02/10/2021 FINDINGS: 3 views of the shoulder There are no fractures or dislocations. The joint spaces appear preserved. Soft tissues unremarkable. IMPRESSION: Negative shoulder. Dictated by: Dictated on workstation # [id number] Dict: 02/10/21822 Trans: 02/10/2151 [facility] [id number] Interpreted by: SHAWNEE LEMUS MD Electronically signed by: SHAWNEE LEMUS MD 02/10/2151 Reviewed: Reviewed by Me Departure Impression Primary Impression: Laceration of face, complicated Qualified Codes: S01.81XA - Laceration without foreign body of other part of head, initial encounter Additional Impressions: Fall at skilled nursing Qualified Codes: W19.XXXA - Unspecified fall, initial encounter; Y92.129 - Unspecified place in skilled nursing as the place of occurrence of the external cause Contusion of left shoulder, initial encounter Contusion of left chest wall Qualified Codes: S20.212A - Contusion of left front wall of thorax, initial encounter Acute exacerbation of chronic low back pain Disposition: 01 HOME, SELF-CARE Condition: Stable Departure-Patient Inst. Decision time for Depature: 09:53 Referrals: APRIL EDMONDS MD (PCP/Family) Primary Care Physician Patient Instructions: Preventing Falls ED, Wound Care ED, Laceration Repair With Stitches ED, Minor Contusion ED, Low Back Pain ED Add. Discharge Instructions: Keep wound on forehead/eyebrow clean and dry for first 24 hours then may wash normally but do not soak it. May apply antibiotic ointment 1-2 times a day and cover the wound if it is oozing blood or might get dirty Ice 5-10 minutes 3-4 times a day to help with bruising and swelling. Keep head elevated at 30-45 degrees at all times to help with bruising and swelling from the wound. Take the full course of antibiotics to help try and prevent infection from the debris that was in the wound. If signs of infection such as fever over 101 F, pus draining from wound, redness streaking across scalp/face then be seen sooner than next week for evaluation. Otherwise have stitches removed next Tuesday with Dr. Edmonds in clinic or if he feels it needs more time then have them removed later next week. All discharge instructions reviewed with patient and/or family. Voiced understanding. Scripts Cephalexin (Cephalexin) 500 Mg Capsule 500 MG PO TID for wound for 7 Days, #21 CAP 0 Refills Prov: AASHISH ROBINS MD 02/10/21 AASHISH ROBINS MD Feb 10, 2021 07:55
[2021-02-10 08:10] LABS: HEMATOCRIT 41 % (35-52); HEMOGLOBIN 13.4 g/dL (11.5-16.0); MEAN CORPUSCULAR HEMOGLOBIN 31 pg (25-34); MEAN CORPUSCULAR HGB CONC 32 g/dL (32-36); MEAN CORPUSCULAR VOLUME 94 fL (80-99); MEAN PLATELET VOLUME 11.1 fL (9.0-12.2); NEUTROPHILS % (AUTO) 78 % (42-75); PLATELET COUNT 276 10^3/uL (130-400); WHITE BLOOD COUNT 13.1 10^3/uL (4.3-11.0)
[2021-02-10 08:11] LABS: BASOPHILS # (AUTO) 0.1 10^3/uL (0.0-0.1); BASOPHILS % (AUTO) 1 % (0-10); EOSINOPHILS # (AUTO) 0.1 10^3/uL (0.0-0.3); EOSINOPHILS % (AUTO) 1 % (0-10); LYMPHOCYTES # (AUTO) 1.6 X 10^3 (1.0-4.0); LYMPHOCYTES % (AUTO) 13 % (12-44); MONOCYTES % (AUTO) 7 % (0-12); NEUTROPHILS # (AUTO) 10.3 X 10^3 (1.8-7.8)
[2021-02-10 08:25] LABS: BILIRUBIN,TOTAL 0.4 MG/DL (0.1-1.0); CALCIUM 9.7 MG/DL (8.5-10.1); CREATININE SERUM 0.94 MG/DL (0.60-1.30); POTASSIUM 4.4 MMOL/L (3.6-5.0)
[2021-02-10 08:26] LABS: ALBUMIN 4.5 GM/DL (3.2-4.5); TOTAL PROTEIN 7.2 GM/DL (6.4-8.2)
--- NOTE | 2021-02-10 08:30 | Diagnostic Imaging Report ---
INDICATION: Left shoulder pain after fall EXAMINATION: Left shoulder 02/10/2021 FINDINGS: 3 views of the shoulder There are no fractures or dislocations. The joint spaces appear preserved. Soft tissues unremarkable. IMPRESSION: Negative shoulder. Dictated by: Dictated on workstation # [id number]
--- NOTE | 2021-02-10 08:32 | Diagnostic Imaging Report ---
PROCEDURE: CT head, face, and cervical spine without contrast. TECHNIQUE: Multiple contiguous axial images were obtained through the head, neck, and facial bones without the use of intravenous contrast. Sagittal and coronal reformations through the cervical spine and facial bones were also performed. Auto Exposure Controls were utilized during the CT exam to meet ALARA standards for radiation dose reduction. INDICATION: Fall with headache and facial laceration and neck pain. Comparison is made with head CT from 01/28/2021. CT HEAD: There appears to be soft tissue swelling in the left frontal scalp. The ventricles and sulci are prominent consistent with the patient's age. No sulcal effacement or midline shift is identified. No acute intra-axial or extra-axial hemorrhage is detected. Cisterns are patent. IMPRESSION: Left frontal scalp swelling and laceration. There are some punctate opacities within the soft tissues which may represent foreign bodies. No acute intracranial process is detected. CT cervical spine: Curvature of the cervical spine is normal. There is minimal retrolisthesis of C3 on C4. There is minimal anterolisthesis of C4 on C5 and retrolisthesis of C5 on C6. Severe degenerative disc disease C3-C4 and C5-C6 levels as noted with disc space narrowing and marginal spurring. There is multilevel facet arthropathy. No fractures are identified. Prevertebral tissues are within normal limits. Odontoid is intact. IMPRESSION: Multilevel cervical spondylosis and listhesis. No acute bony abnormality is detected. CT face: There is significant soft tissue swelling in the left frontal scalp. There is soft tissue gas present consistent with laceration. There are punctate opacities in the soft tissues which suggestive of foreign bodies. The mandible appears intact. The zygomatic arches are intact. The maxillary sinus alicea as well as the nasal bones and orbital alicea appear to be intact. The visualized paranasal sinuses are well aerated. IMPRESSION: Left frontal scalp soft tissue swelling and laceration with probable punctate soft tissue foreign bodies. No definite facial bone fracture is detected. Dictated by: Dictated on workstation # [id number]
[2021-02-10 08:33] LABS: INR 0.9 (0.8-1.4); PROTHROMBIN TIME PATIENT 12.6 SEC (12.2-14.7)
--- NOTE | 2021-02-10 08:43 | Diagnostic Imaging Report ---
PROCEDURE: CT chest, abdomen, and pelvis without contrast. TECHNIQUE: Multiple contiguous axial images were obtained through the chest, abdomen, and pelvis without the use of intravenous contrast. Auto Exposure Controls were utilized during the CT exam to meet ALARA standards for radiation dose reduction. INDICATION: Fall with pain to the left side of the body as well as back pain and hip pain. FINDINGS: CT CHEST: No definite mediastinal hematoma is identified. No pulmonary contusion or pneumothorax is identified. The ribs appear to be intact. The thoracic spine is intact. IMPRESSION: No acute feature in the chest is identified. CT ABDOMEN AND PELVIS: The liver contains circumscribed low-attenuation lesions, suggestive of cysts. The gallbladder is surgically absent. No definite hepatic or splenic injury is seen. There is no perihepatic or perisplenic fluid. The pancreas is unremarkable. No adrenal or renal hematoma is identified. There is a tiny nonobstructing calculus in the mid left kidney. The aorta is calcified but nonaneurysmal. The bowel loops are unremarkable apart from significant diverticulosis of the sigmoid and descending colon but no evidence of acute diverticulitis. There is no free fluid or evidence of hemoperitoneum. The lumbar spine is unremarkable. The bony pelvis and proximal femora appear to be intact. No acute bony abnormality is identified. IMPRESSION: 1. Probable hepatic cysts. 2. Nonobstructing left renal calculus. 3. Uncomplicated diverticulosis. 4. No evidence of abdominal or pelvic visceral injury. Dictated by: Dictated on workstation # [id number]
[2021-02-10 09:49] VITALS: BP 142/62
[2021-02-10] MEDS ORDERED: cefTRIAXone 1,000 MG in WATER (STERILE) FOR INJECTION 10 ML IV STA (09:49)
[2021-02-10] MEDS ORDERED: CEPH500C PO (09:58)
[2021-02-10] MEDS ORDERED: TETANUS,DIPTH,PERTUSS P/F (BOOSTRIX) 0.5 ML VIAL IM ONE (10:00)
== END 2021-02-10 10:05 | disposition home or self-care (01) ==
LOC: EDUNIT# 07:30 → ER FS 07:30
DX: S01.112A Laceration without foreign body of left eyelid and periocular area, initial encounter (principal); S01.81XA Laceration without foreign body of other part of head, initial encounter; S40.012A Contusion of left shoulder, initial encounter; S20.212A Contusion of left front wall of thorax, initial encounter; G89.29 Other chronic pain; M54.5 Low back pain; F03.90 Unspecified dementia, unspecified severity, without behavioral disturbance, psychotic disturbance, mood disturbance, and anxiety; I10 Essential (primary) hypertension; E78.00 Pure hypercholesterolemia, unspecified; I25.10 Atherosclerotic heart disease of native coronary artery without angina pectoris; R40.2410 Glasgow coma scale score 13-15, unspecified time; Z86.73 Personal history of transient ischemic attack (TIA), and cerebral infarction without residual deficits; Z23 Encounter for immunization; Z79.01 Long term (current) use of anticoagulants; Z79.82 Long term (current) use of aspirin; Z79.899 Other long term (current) drug therapy; W22.8XXA Striking against or struck by other objects, initial encounter; Y92.129 Unspecified place in nursing home as the place of occurrence of the external cause
CPT/HCPCS: 12053; 36415; 70450; 70486; 71250; 72125; 73030; 74176; 80053; 85025; 85610; 85730; 90715

== ENCOUNTER 2021-06-26 18:07 | Emergency (ER) | payer MEDICARE, MEDICAID ==
[~2021-06-26] VITALS: Ht 162 cm; Wt 65.0 kg
[~2021-06-26 18:07] MED LIST changes: +CEPH500C PO; -LISI-729 PO; +LISI5TAB20 PO
--- NOTE | 2021-06-26 18:10 | ED Fever ---
History of Present Illness General Stated Complaint: FEVER,LETHARGIC,AMS History of Present Illness Date Seen by Provider: Jun 26, 2021 Time Seen by Provider: 18:10 Initial Comments 89-year-old female sent in from [facility]. Patient was found to be little bit lethargic, had a fever. [facility] reports that normally she is reading and active and she does not acting herself today. No reports of cough, nausea, vomiting, shortness of breath or other systemic complaints. Allergies and Home Medications Allergies Coded Allergies: Sulfa (Sulfonamide Antibiotics) (Verified Allergy, Unknown, 12/02/18) erythromycin base (Verified Allergy, Unknown, 12/02/18) adhesive tape (Verified Adverse Reaction, Unknown, 12/02/18) gatifloxacin (Verified Adverse Reaction, Unknown, 12/02/18) salsalate (Verified Adverse Reaction, Unknown, 12/02/18) tramadol (Verified Adverse Reaction, Unknown, 12/02/18) Patient Home Medication List Home Medication List Reviewed: Yes Aspirin (Aspirin Ec 81 Mg) 81 Mg Tabec, 81 MG PO DAILY, (Reported) Entered as Reported by: GEORGE CALVILLO on 07/17/10 153 Calcium Carbonate/Vitamin D3 (Calcium 500 + D Tablet) 1 Each Tablet, 1 EACH PO DAILY, (Reported) Entered as Reported by: GEORGE CALVILLO on 07/17/10 153 Carvedilol (Carvedilol) 6.25 Mg Tablet, 1 EACH PO BID, (Reported) Entered as Reported by: GEORGE CALVILLO on 07/17/10 153 Cephalexin (Cephalexin) 500 Mg Capsule, 500 MG PO TID Prescribed by: AASHISH ROBINS on 02/10/21 0958 Ciprofloxacin HCl (Ciprofloxacin HCl) 500 Mg Tablet, (Reported) Entered as Reported by: JEANNINE MARKHAM on 06/15/19 1620 Clopidogrel Bisulfate (Plavix 75 Mg) 75 Mg Tablet, 1 EACH PO DAILY, (Reported) Entered as Reported by: GEORGE CALVILLO on 07/17/10 153 Donepezil HCl (Aricept) 10 Mg Tablet, 10 MG PO HS Prescribed by: JAELYN MONTENEGRO on 12/02/18 1504 Estradiol (Estrace Tablet) 0.5 Mg Tablet, 0.5 MG PO DAILY Prescribed by: JAELYN MONTENEGRO on 12/02/18 1502 Lisinopril (Lisinopril) 5 Mg Tablet, 5 MG PO DAILY Prescribed by: JAELYN MONTENEGRO on 12/02/18 1512 Memantine HCl (Namenda) 10 Mg Tablet, 10 MG PO BID Prescribed by: JAELYN MONTENEGRO on 12/02/18 1506 Multivitamins (Multiple Vitamin) 1 Tab Tablet, 1 TAB PO DAILY, (Reported) Entered as Reported by: GEORGE CALVILLO on 07/17/10 1533 Naproxen Sodium (All Day Relief) 220 Mg Tablet, (Reported) Entered as Reported by: JEANNINE MARKHAM on 06/15/19 1620 Nitroglycerin (Nitrostat) 0.4 Mg Subl, 0.4 MG SL NEEDED, (Reported) Entered as Reported by: GEORGE CALVILLO on 07/17/10 1533 Phenazopyridine HCl (Pyridium) 200 Mg Tablet, 1 TAB PO Q8H Prescribed by: BE MAYBERRY on 06/15/19 1723 Rosuvastatin Calcium (Crestor) 10 Mg Tablet, 1 EACH PO every other day, (Reported) Entered as Reported by: GEORGE CALVILLO on 07/17/10 1533 Review of Systems Review of Systems Constitutional: see HPI; No chills; fever, malaise, weakness Respiratory: no symptoms reported Cardiovascular: no symptoms reported Gastrointestinal: no symptoms reported Genitourinary: no symptoms reported Musculoskeletal: no symptoms reported Skin: no symptoms reported Psychiatric/Neurological: See HPI Past Wanrjjn-Pfhfrv-Whcyja Hx Seasonal Allergies Seasonal Allergies: No Past Medical History Surgery/Hospitalization HX: Chronic Dementia Surgeries: Yes (Bladder suspension, EGD, Colonoscopy, Excision Tumor Left Mandible, ) Appendectomy, Bladder Surgery, Cardiac, Coronary Stent, Gallbladder, Hysterectomy Respiratory: No Cardiac: Yes (stents x 2, September 2009, CVD, Chest pain) Coronary Artery Disease, High Cholesterol, Hypertension Dementia, TIA [employer] History: Hysterectomy Genitourinary: No Gastrointestinal: Yes Gastroesophageal Reflux Musculoskeletal: Yes (Osteopenia) Arthritis, Fibromyalgia Endocrine: Yes (Hyperglycemia) HEENT: No Cancer: No Psychosocial: No Integumentary: No Blood Disorders: No Physical Exam Vital Signs - First Documented 06/26/21 18:10 Temp 38.9 Pulse 84 Resp 22 B/P (MAP) 143/57 (85) Pulse Ox 94 O2 Delivery Room Air Capillary Refill : Height: 5'5.00" Weight: 132lbs. 5.0oz. 60.788351pd; 24.00 BMI Method:Stated General Appearance: no apparent distress, thin, other (Frail) Neck: full range of motion Respiratory: lungs clear, normal breath sounds Cardiovascular: normal peripheral pulses, regular rate, rhythm, no edema Gastrointestinal: non tender, soft Neurologic/Psychiatric: alert, other (Patient does not seem to be orientated but I am unsure of her baseline) Skin: warm/dry Procedures/Interventions Suture Size: 5-0 Progress/Results/Core Measures Suspected Sepsis SIRS Temperature: Pulse: Respiratory Rate: Laboratory Tests 06/26/21 18:24: White Blood Count 8.2 Blood Pressure / Mean: Laboratory Tests 06/26/21 18:24: Creatinine 0.87, Platelet Count 180, Total Bilirubin 0.4 Results/Orders Lab Results Laboratory Tests Test 06/26/21 18:24 06/26/21 18:40 06/26/21 19:27 Range/Units White Blood Count 8.2 4.3-11.0 10^3/uL Red Blood Count 4.25 3.80-5.11 10^6/uL Hemoglobin 12.7 11.5-16.0 g/dL Hematocrit 39 35-52 % Mean Corpuscular Volume 92 80-99 fL Mean Corpuscular Hemoglobin 30 25-34 pg Mean Corpuscular Hemoglobin Concent 33 32-36 g/dL Red Cell Distribution Width 12.8 10.0-14.5 % Platelet Count 180 130-400 10^3/uL Mean Platelet Volume 11.7 9.0-12.2 fL Immature Granulocyte % (Auto) 0 % Neutrophils (%) (Auto) 86 H 42-75 % Lymphocytes (%) (Auto) 5 L 12-44 % Monocytes (%) (Auto) 8 0-12 % Eosinophils (%) (Auto) 0 0-10 % Basophils (%) (Auto) 1 0-10 % Neutrophils # (Auto) 7.1 1.8-7.8 X 10^3 Lymphocytes # (Auto) 0.4 L 1.0-4.0 X 10^3 Monocytes # (Auto) 0.7 0.0-1.0 X 10^3 Eosinophils # (Auto) 0.0 0.0-0.3 10^3/uL Basophils # (Auto) 0.0 0.0-0.1 10^3/uL Immature Granulocyte # (Auto) 0.0 0.0-0.1 10^3/uL Neutrophils % (Manual) 83 % Lymphocytes % (Manual) 9 % Monocytes % (Manual) 8 % Toxic Granulation 4+ Sodium Level 136 135-145 MMOL/L Potassium Level 3.8 3.6-5.0 MMOL/L Chloride Level 100 98-107 MMOL/L Carbon Dioxide Level 22 21-32 MMOL/L Anion Gap 14 5-14 MMOL/L Blood Urea Nitrogen 17 7-18 MG/DL Creatinine 0.87 0.60-1.30 MG/DL Estimat Glomerular Filtration Rate 64 BUN/Creatinine Ratio 20 Glucose Level 133 H 70-105 MG/DL Calcium Level 8.7 8.5-10.1 MG/DL Corrected Calcium 8.7 8.5-10.1 MG/DL Total Bilirubin 0.4 0.1-1.0 MG/DL Aspartate Amino Transf (AST/SGOT) 32 5-34 U/L Alanine Aminotransferase (ALT/SGPT) 17 0-55 U/L Alkaline Phosphatase 83 40-136 U/L C-Reactive Protein 1.86 H <0.50 MG/DL Total Protein 6.7 6.4-8.2 GM/DL Albumin 4.0 3.2-4.5 GM/DL Influenza Type A Antigen NEGATIVE NEGATIVE Influenza Type B Antigen NEGATIVE NEGATIVE Urine Color DARK YELLOW Urine Clarity CLOUDY Urine pH 5.5 5-9 Urine Specific Velarde >=1.030 1.016-1.022 Urine Protein 2+ H NEGATIVE Urine Glucose (UA) NEGATIVE NEGATIVE Urine Ketones 1+ H NEGATIVE Urine Nitrite POSITIVE H NEGATIVE Urine Bilirubin NEGATIVE NEGATIVE Urine Urobilinogen 0.2 < = 1.0 MG/DL Urine Leukocyte Esterase 1+ H NEGATIVE Urine RBC (Auto) 3+ H NEGATIVE Urine RBC NONE /HPF Urine WBC TNTC H /HPF Urine Crystals NONE /LPF Urine Bacteria LARGE H /HPF Urine Casts NONE /LPF Urine Mucus NEGATIVE /LPF Urine Culture Indicated YES My Orders Orders - THURSTON,MIREYA L DO Cbc With Automated Diff (06/26/21 18:14) Comprehensive Metabolic Panel (06/26/21 18:14) Ua Culture If Indicated (06/26/21 18:14) Crp Fs (06/26/21 18:14) Influenza A & B Antigens (06/26/21 18:14) Chest 1 View Ap/Pa Only (06/26/21 18:14) Ed Iv/Invasive Line Start (06/26/21 18:14) Ns Iv 500 Ml (Sodium Chloride 0.9%) (06/26/21 18:15) Covid 19 Inhouse Test (06/26/21 18:14) Isolation Central Supply Req (06/26/21 18:14) Manual Differential (06/26/21 18:24) Urine Culture (06/26/21 19:27) Ceftriaxone 1 Gm Pre-Mix (Rocephin 1 Gm (06/26/21 19:41) Medications Given in ED Current Medications Medications Dose Ordered Sig/Dianelys Route Start Time Stop Time Status Last Admin Dose Admin Sodium Chloride 500 ml @ 0 mls/hr Q0M ONCE IV 06/26/21 18:15 06/26/21 18:18 DC 06/26/21 19:10 999 MLS/HR Vital Signs/I&O 06/26/21 06/26/21 18:10 18:35 Temp 38.9 Pulse 84 Resp 22 B/P (MAP) 143/57 (85) Pulse Ox 94 O2 Delivery Room Air Room Air Capillary Refill : Progress Note : Progress Note Patient with an acute urinary tract infection. Given her 1 g of Rocephin IV while in the ER. Patient has a healthcare nurse that cares for her and states that they can do IM Rocephin injections. We will do 1 g Rocephin IM for the next 4 days starting tomorrow. She should follow-up with her primary care provider as needed Departure Impression Primary Impression: Acute cystitis Qualified Codes: N30.01 - Acute cystitis with hematuria Disposition: HOME, SELF-CARE Condition: Stable Departure-Patient Inst. Referrals: SELF,APRIL MCCARTHY (PCP/Family) Primary Care Physician Patient Instructions: Acute Cystitis (DC) Add. Discharge Instructions: Rocephin 1 g IM every 24 hours for the next 4 days Follow-up with your primary care provider as needed MIREYA THURSTON DO Jun 26, 2021 18:10
[2021-06-26] MEDS ORDERED: NS IV 500 ML 500 ML IV ONE (18:15)
[2021-06-26 18:29] LABS: BASOPHILS % (AUTO) 1 % (0-10); EOSINOPHILS % (AUTO) 0 % (0-10); HEMATOCRIT 39 % (35-52); HEMOGLOBIN 12.7 g/dL (11.5-16.0); LYMPHOCYTES % (AUTO) 5 % (12-44); MEAN CORPUSCULAR HEMOGLOBIN 30 pg (25-34); MEAN CORPUSCULAR HGB CONC 33 g/dL (32-36); MEAN CORPUSCULAR VOLUME 92 fL (80-99); MEAN PLATELET VOLUME 11.7 fL (9.0-12.2); MONOCYTES % (AUTO) 8 % (0-12); NEUTROPHILS % (AUTO) 86 % (42-75); PLATELET COUNT 180 10^3/uL (130-400); WHITE BLOOD COUNT 8.2 10^3/uL (4.3-11.0)
[2021-06-26 18:30] LABS: LYMPHOCYTES # (AUTO) 0.4 X 10^3 (1.0-4.0); MONOCYTES # (AUTO) 0.7 X 10^3 (0.0-1.0); NEUTROPHILS # (AUTO) 7.1 X 10^3 (1.8-7.8)
--- NOTE | 2021-06-26 18:36 | Diagnostic Imaging Report ---
EXAMINATION: Chest radiograph, portable AP view. DATE: 06/26/2021 6:33 PM. INDICATION: 89-year-old female, fever. COMPARISON: December 02, 2018. FINDINGS: Heart size and mediastinal contours are unchanged. There is no identified pneumothorax. There is no large pleural effusion. There is no identified interval focal airspace consolidation. There is redemonstrated widening of the right acromioclavicular joint. IMPRESSION: No identified acute cardiopulmonary abnormality. Dictated by: Dictated on workstation # [id number]
[2021-06-26 18:49] LABS: CREATININE SERUM 0.87 MG/DL (0.60-1.30); POTASSIUM 3.8 MMOL/L (3.6-5.0)
[2021-06-26 18:50] LABS: BILIRUBIN,TOTAL 0.4 MG/DL (0.1-1.0); CALCIUM 8.7 MG/DL (8.5-10.1); TOTAL PROTEIN 6.7 GM/DL (6.4-8.2)
[2021-06-26 19:14] LABS: LYMPHOCYTES % (MANUAL) 9 %; MONOCYTES % (MANUAL) 8 %; NEUTROPHILS % (MANUAL) 83 %; TOXIC GRANULATION/VACUOLAZATIO 4+
[2021-06-26 19:33] LABS: CLARITY,URINE CLOUDY; COLOR,URINE DARK YELLOW; PH,URINE 5.5 (5-9)
[2021-06-26 19:34] LABS: BACTERIA,URINE LARGE /HPF; BILIRUBIN,URINE NEGATIVE (NEGATIVE); GLUCOSE, URINE (UA) NEGATIVE (NEGATIVE); KETONES,URINE 1+ (NEGATIVE); LEUKOCYTE ESTERASE ,URINE 1+ (NEGATIVE); NITRITE,URINE POSITIVE (NEGATIVE); PROTEIN,URINE 2+ (NEGATIVE); WBC,URINE TNTC /HPF
[2021-06-26] MEDS ORDERED: cefTRIAXone 1 GM PRE-MIX 50 ML IV STA (19:41)
[2021-06-26 19:53] VITALS: BP 132/64
== END 2021-06-26 20:06 | disposition home or self-care (01) ==
LOC: EDUNIT# 18:07 → ER FS 18:09
DX: N30.01 Acute cystitis with hematuria (principal); F03.90 Unspecified dementia, unspecified severity, without behavioral disturbance, psychotic disturbance, mood disturbance, and anxiety; I25.10 Atherosclerotic heart disease of native coronary artery without angina pectoris; I10 Essential (primary) hypertension; E78.00 Pure hypercholesterolemia, unspecified; Z86.73 Personal history of transient ischemic attack (TIA), and cerebral infarction without residual deficits; Z95.5 Presence of coronary angioplasty implant and graft; Z20.822 Contact with and (suspected) exposure to COVID-19; Z79.899 Other long term (current) drug therapy
CPT/HCPCS: 36415; 71045; 80053; 81000; 85007; 85027; 86141; 87077; 87088; 87635; 87804